=== PATIENT | female | born 1950 | race Caucasian/White ===

== ENCOUNTER 2018-01-15 20:59 | Inpatient (IN) ==
--- NOTE | 2018-01-15 21:22 | Emergency Department Note ---
Disposition Clinical Impression: Facial swelling, Lymphadenopathy, SVC (superior vena cava obstruction), Proteinuria Disposition: Admitted As Inpatient Condition: Fair General Adult HPI - General Chief complaint: ED Shortness of Breath/Dyspnea Stated complaint: FOREIGN/Facial swelling Time Seen by Provider: 01/15/18 21:16 Source: patient Limitations: no limitations - History of Present Illness Pain Scale: 0 - Related Data Home Medications Medication Instructions Recorded Confirmed Calcium Carbonate/Vitamin D3 1 tab PO DAILY 09/08/16 01/16/18 [Calcium 600 + Vit D Tablet] Chlorhexidine Gluconate [Peridex] 15 ml MM BID 09/08/16 01/16/18 Cyanocobalamin (Vitamin B-12) 10,000 mcg PO DAILY 09/08/16 01/16/18 [Vitamin B12] Lisinopril [Zestril] 10 mg PO DAILY 09/08/16 01/16/18 Lovastatin [Mevacor] 20 mg PO HS 09/08/16 01/16/18 Multivitamin [One Daily Essential] 1 tab PO DAILY 09/08/16 01/16/18 Naproxen Sodium/P-Ephed HCl [Aleve 1 tab PO BID PRN 09/08/16 01/16/18 Cold & Sinus Caplet] Paroxetine HCl [Paxil] 20 mg PO DAILY 09/08/16 01/16/18 Turmeric Root Extract [Turmeric] 1,000 mg PO DAILY 09/08/16 01/16/18 Fish Oil/Dha/Epa [Fish Oil 1,200 1 cap PO DAILY 01/16/18 01/16/18 mg Fish Oil] Loratadine [Allergy Relief] 10 mg PO DAILY 01/16/18 01/16/18 Allergies Allergy/AdvReac Type Severity Reaction Status Date / Time No Known Allergies Allergy Verified 01/15/18 21:09 Past Medical History - Past Medical History Medical history: Reports: arthritis, hypertension Surgical history: Reports: orthopedic, other Psychiatric history: Reports: no psych history - Social History Smoking Status: Current every day smoker Alcohol use: Reports: none Drug use: Reports: none Physical Exam - General Limitations: no limitations General appearance: alert, in no apparent distress Course Vital Signs Temperature 98 F 01/15/18 21:04 Pulse Rate 106 01/15/18 21:04 Respiratory Rate 20 01/15/18 21:04 Blood Pressure 147/77 01/15/18 21:04 O2 Sat by Pulse Oximetry 94 01/15/18 21:04 Temperature 97.9 F 01/16/18 11:30 Pulse Rate 86 01/16/18 11:30 Respiratory Rate 18 01/16/18 11:30 Blood Pressure 162/91 01/16/18 11:30 O2 Sat by Pulse Oximetry 94 01/16/18 11:30 Oxygen Delivery Oxygen Delivery Nasal Cannula Medical Decision Making - Lab Data Result diagrams: 01/15/18 21:35 01/16/18 05:55 Lab Results 01/15/18 01/15/18 01/15/18 Range/Units 21:35 21:35 21:35 WBC 8.4 (4.3-11.1) K/mcL RBC 4.63 (3.82-4.97) M/mcL Hgb 14.7 (11.5-15.4) g/dL Hct 42.1 (35.3-44.9) % MCV 90.9 (83.0-100.0) fL MCH 31.7 (28.0-33.3) pg MCHC 34.9 (31.6-35.5) g/dL RDW 14.2 (11.5-14.5) % Plt Count 252 (140-400) K/mcL MPV 9.5 (9.4-12.4) fL Immature Gran % 0.5 (0-4) % Seg Neutrophils % 73.1 % Lymphocytes % 18.0 % Monocytes % 6.6 % Eosinophils % 1.3 % Basophils % 0.5 % Neutrophils # 6.1 (1.6-8.9) K/mcL Lymphocytes # 1.5 (0.6-4.6) K/mcL Monocytes # 0.6 (0.0-1.3) K/mcL Eosinophils # 0.1 (0.0-0.6) K/mcL Basophils # 0.0 (0.0-0.2) K/mcL Sodium 139 (136-145) mEq/L Potassium 3.7 (3.5-5.1) mEq/L Chloride 109 H (98-107) mEq/L Carbon Dioxide 23 (23-29) mEq/L BUN 19 (8-23) mg/dL Creatinine 0.89 (0.60-1.20) mg/dL Est GFR ( Amer) > 60 (> 60) Est GFR (Non-Af Amer) > 60 (> 60) BUN/Creatinine Ratio 21 (6-26) Glucose 162 H (70-105) mg/dL Calculated Osmolality 294 (280-300) Calcium 9.4 (8.6-10.3) mg/dL Troponin I < 0.03 (< 0.04) ng/mL B-Natriuretic Peptide (Less than 100) pg/mL Urine Color (Yellow) Urine Clarity (Clear) Urine pH (5.0-8.0) pH Units Ur Specific [place] (1.010-1.025) Urine Protein (Neg-Trace) mg/dL Urine Glucose (UA) (Normal) mg/dL Urine Ketones (Negative) mg/dL Urine Blood (Negative) Urine Nitrite (Negative) Urine Bilirubin (Negative) Urine Urobilinogen (Normal) mg/dL Ur Leukocyte Esterase (Negative) Urine Microscopic RBC (0-3) per hpf Urine Microscopic WBC (0-3) per hpf Ur Squamous Epith Cells (None-Few) per lpf Calcium Oxalate Crystal Urine Bacteria (None-Few) per hpf Hyaline Casts (None-Few) per lpf 01/15/18 01/15/18 Range/Units 21:35 22:17 WBC (4.3-11.1) K/mcL RBC (3.82-4.97) M/mcL Hgb (11.5-15.4) g/dL Hct (35.3-44.9) % MCV (83.0-100.0) fL MCH (28.0-33.3) pg MCHC (31.6-35.5) g/dL RDW (11.5-14.5) % Plt Count (140-400) K/mcL MPV (9.4-12.4) fL Immature Gran % (0-4) % Seg Neutrophils % % Lymphocytes % % Monocytes % % Eosinophils % % Basophils % % Neutrophils # (1.6-8.9) K/mcL Lymphocytes # (0.6-4.6) K/mcL Monocytes # (0.0-1.3) K/mcL Eosinophils # (0.0-0.6) K/mcL Basophils # (0.0-0.2) K/mcL Sodium (136-145) mEq/L Potassium (3.5-5.1) mEq/L Chloride (98-107) mEq/L Carbon Dioxide (23-29) mEq/L BUN (8-23) mg/dL Creatinine (0.60-1.20) mg/dL Est GFR ( Amer) (> 60) Est GFR (Non-Af Amer) (> 60) BUN/Creatinine Ratio (6-26) Glucose (70-105) mg/dL Calculated Osmolality (280-300) Calcium (8.6-10.3) mg/dL Troponin I (< 0.04) ng/mL B-Natriuretic Peptide 58 (Less than 100) pg/mL Urine Color Yellow (Yellow) Urine Clarity Cloudy A (Clear) Urine pH 6.0 (5.0-8.0) pH Units Ur Specific [place] 1.028 H (1.010-1.025) Urine Protein >=300 H (Neg-Trace) mg/dL Urine Glucose (UA) Normal (Normal) mg/dL Urine Ketones Trace H (Negative) mg/dL Urine Blood Negative (Negative) Urine Nitrite Negative (Negative) Urine Bilirubin Small H (Negative) Urine Urobilinogen Normal (Normal) mg/dL Ur Leukocyte Esterase Negative (Negative) Urine Microscopic RBC 5-15 H (0-3) per hpf Urine Microscopic WBC 5-15 H (0-3) per hpf Ur Squamous Epith Cells Many H (None-Few) per lpf Calcium Oxalate Crystal Present Urine Bacteria None Seen (None-Few) per hpf Hyaline Casts Moderate H (None-Few) per lpf Attestation Statement - Attestation Attestation: I examined this patient and my medical decision-making was reviewed with the Resident Physician. I agree with the documented findings, disposition and treatment plan as described except to the extent set forth below. [id number] time provided Patient presents dyspneic. She recently completed a course of antibiotics and steroids for facial swelling and rash. I favor an underlying component of COPD given her history. She appears in no acute respiratory distress on exam
--- NOTE | 2018-01-15 21:32 | Emergency Department Note ---
Disposition Clinical Impression: Facial swelling, Lymphadenopathy, SVC (superior vena cava obstruction) Proteinuria Qualifiers: Proteinuria type: unspecified Qualified Code(s): R80.9 - Proteinuria, unspecified Disposition: Admitted As Inpatient Condition: Fair Referrals: Clinton Willams MD [Primary Care Provider] - Forms: ED Satisfaction Letter Time of Disposition: 23:10 General Adult HPI - General Chief complaint: ED Shortness of Breath/Dyspnea Stated complaint: FOREIGN/Facial swelling Time Seen by Provider: 01/15/18 21:16 Source: patient Mode of arrival: ambulatory Limitations: no limitations Nursing Notes Reviewed: Yes Vital Signs Reviewed: Yes - History of Present Illness HPI Narrative: 67-year-old female history of hypertension, tobacco abuse presents for evaluation of shortness of breath and facial swelling. Patient states that symptoms started approximately 3 weeks ago. Patient noted that she did get bitten by a tick and removed the tick. States symptom onset was following that. Patient noted swelling of her face with nasal congestion. Patient states she has been on 2 different types of antibiotics which she is not able to recall. Patient notes she has been short of breath. Patient does admit to smoking use. States she has been short of breath "for a long time". Patient denies a nausea vomiting or diaphoresis. Patient denies history of heart attacks. Patient states she does have red spots on her face. Patient does have swollen lower eyelids. States that she has been using Flonase as well as antihistamine to help with her sinus congestion. Patient also had a recent CT of her sinuses. Pain Scale: 0 - Related Data Home Medications Medication Instructions Recorded Confirmed Calcium Carbonate/Vitamin D3 1 tab PO DAILY 09/08/16 09/08/16 [Calcium 600 + Vit D Tablet] Chlorhexidine Gluconate [Peridex] 15 ml MM BID 09/08/16 09/08/16 Cyanocobalamin (Vitamin B-12) 10,000 mcg PO DAILY 09/08/16 09/08/16 [Vitamin B12] Lisinopril [Zestril] 10 mg PO DAILY 09/08/16 09/08/16 Lovastatin [Mevacor] 20 mg PO HS 09/08/16 09/08/16 Multivitamin [One Daily Essential] 1 tab PO DAILY 09/08/16 09/08/16 Naproxen Sodium/P-Ephed HCl [Aleve 1 tab PO BID PRN 09/08/16 09/08/16 Cold & Sinus Caplet] [place]-3S/Dha/Epa/Fish Oil [Fish 1,200 mg PO DAILY 09/08/16 09/08/16 Oil 1,200 mg Softgel] Paroxetine HCl [Paxil] 20 mg PO DAILY 09/08/16 09/08/16 Turmeric Root Extract [Turmeric] 1,000 mg PO DAILY 09/08/16 09/08/16 Allergies Allergy/AdvReac Type Severity Reaction Status Date / Time No Known Allergies Allergy Verified 01/15/18 21:09 All systems ED: reviewed and negative except as stated. Constitutional: Denies: fever Cardiovascular: Reports: chest pain Respiratory: Reports: cough, dyspnea Gastrointestinal: Denies: abdominal pain, nausea, vomiting Past Medical History - Past Medical History Source: patient Medical history: Reports: arthritis, hypertension Surgical history: Reports: orthopedic, other Psychiatric history: Reports: no psych history - Social History Smoking Status: Current every day smoker Alcohol use: Reports: none Drug use: Reports: none Physical Exam - General Limitations: no limitations General appearance: alert, in no apparent distress - Head Head exam: atraumatic, normocephalic, normal inspection - Eye Eye exam: Present: normal appearance, PERRL, EOMI - ENT ENT exam: normal exam, normal oropharynx, mucous membranes moist, other (Lower periorbital swelling. No ecchymosis or erythema. No tenderness over the maxillaries bilaterally. No stridor. No uvular deviation. No trismus. No subungual tenderness.) - Neck Neck exam: Present: normal inspection, trachea midline - Chest Chest inspection: Present: normal inspection - Respiratory Respiratory exam: Present: accessory muscle use, prolonged expiratory phase. Absent: respiratory distress - Cardiovascular Cardiovascular exam: Present: normal rhythm, tachycardia. Absent: systolic murmur - Abdominal Exam Abdominal exam: Present: soft, Non-Tender - Extremities Exam Extremities exam: Present: normal inspection. Absent: pedal edema - Expanded Lower Extremity Exam Neurovascular/Tendon exam: Present: normal capillary refill - Back Exam Back exam: Present: normal inspection - Neurological Exam Neurological exam: Present: alert, oriented X3, CN II-XII intact - Skin Skin exam: Present: warm, dry, intact, normal color Course Course Narrative: Patient seen and examined. Patient appears to be in no acute distress. Patient records reviewed. Patient has not had any recent imaging of her chest. Patient also had not had any recent laboratory work. Patient will get screening cardiopulmonary evaluation. Patient will get a CT Steffanie chest given her tachycardia as well as facial swelling. Disposition pending. - Reevaluation(s) Reevaluation #1: Patient resting comfortably. Time: 23:08 Vital Signs Temperature 98 F 01/15/18 21:04 Pulse Rate 106 01/15/18 21:04 Respiratory Rate 20 01/15/18 21:04 Blood Pressure 147/77 01/15/18 21:04 O2 Sat by Pulse Oximetry 94 01/15/18 21:04 Temperature 98 F 01/15/18 21:04 Pulse Rate 98 01/15/18 22:00 Respiratory Rate 20 01/15/18 22:00 Blood Pressure 127/70 01/15/18 22:00 O2 Sat by Pulse Oximetry 93 01/15/18 22:00 Oxygen Delivery Oxygen Delivery Nasal Cannula Medical Decision Making - [facility] Narrative Medical decision making narrative: Patient presents with shortness of breath as well as facial swelling. Patient had basic labs which were clinically unremarkable. Patient has a history of COPD and smoking. Patient had evidence of protein in her urine. Initial concerns for nephrotic syndrome. Patient did get advanced imaging of the chest which showed concerns first. Vena cava syndrome. Patient had some lymphadenopathy consistent with metastatic disease or lymphoma. Patient would likely need all clot evaluation regarding these findings. Patient will also need evaluation regarding her illness please see compression causing her facial swelling. Patient will be admitted to hospital service for further investigation. - Lab Data Lab results reviewed: Yes I reviewed the patient's lab results. Result diagrams: 01/15/18 21:35 01/15/18 21:35 Lab Results 01/15/18 01/15/18 01/15/18 Range/Units 21:35 21:35 21:35 WBC 8.4 (4.3-11.1) K/mcL RBC 4.63 (3.82-4.97) M/mcL Hgb 14.7 (11.5-15.4) g/dL Hct 42.1 (35.3-44.9) % MCV 90.9 (83.0-100.0) fL MCH 31.7 (28.0-33.3) pg MCHC 34.9 (31.6-35.5) g/dL RDW 14.2 (11.5-14.5) % Plt Count 252 (140-400) K/mcL MPV 9.5 (9.4-12.4) fL Immature Gran % 0.5 (0-4) % Seg Neutrophils % 73.1 % Lymphocytes % 18.0 % Monocytes % 6.6 % Eosinophils % 1.3 % Basophils % 0.5 % Neutrophils # 6.1 (1.6-8.9) K/mcL Lymphocytes # 1.5 (0.6-4.6) K/mcL Monocytes # 0.6 (0.0-1.3) K/mcL Eosinophils # 0.1 (0.0-0.6) K/mcL Basophils # 0.0 (0.0-0.2) K/mcL Sodium 139 (136-145) mEq/L Potassium 3.7 (3.5-5.1) mEq/L Chloride 109 H (98-107) mEq/L Carbon Dioxide 23 (23-29) mEq/L BUN 19 (8-23) mg/dL Creatinine 0.89 (0.60-1.20) mg/dL Est GFR ( Amer) > 60 (> 60) Est GFR (Non-Af Amer) > 60 (> 60) BUN/Creatinine Ratio 21 (6-26) Glucose 162 H (70-105) mg/dL Calculated Osmolality 294 (280-300) Calcium 9.4 (8.6-10.3) mg/dL Troponin I < 0.03 (< 0.04) ng/mL B-Natriuretic Peptide (Less than 100) pg/mL Urine Color (Yellow) Urine Clarity (Clear) Urine pH (5.0-8.0) pH Units Ur Specific [place] (1.010-1.025) Urine Protein (Neg-Trace) mg/dL Urine Glucose (UA) (Normal) mg/dL Urine Ketones (Negative) mg/dL Urine Blood (Negative) Urine Nitrite (Negative) Urine Bilirubin (Negative) Urine Urobilinogen (Normal) mg/dL Ur Leukocyte Esterase (Negative) Urine Microscopic RBC (0-3) per hpf Urine Microscopic WBC (0-3) per hpf Ur Squamous Epith Cells (None-Few) per lpf Calcium Oxalate Crystal Urine Bacteria (None-Few) per hpf Hyaline Casts (None-Few) per lpf 01/15/18 01/15/18 Range/Units 21:35 22:17 WBC (4.3-11.1) K/mcL RBC (3.82-4.97) M/mcL Hgb (11.5-15.4) g/dL Hct (35.3-44.9) % MCV (83.0-100.0) fL MCH (28.0-33.3) pg MCHC (31.6-35.5) g/dL RDW (11.5-14.5) % Plt Count (140-400) K/mcL MPV (9.4-12.4) fL Immature Gran % (0-4) % Seg Neutrophils % % Lymphocytes % % Monocytes % % Eosinophils % % Basophils % % Neutrophils # (1.6-8.9) K/mcL Lymphocytes # (0.6-4.6) K/mcL Monocytes # (0.0-1.3) K/mcL Eosinophils # (0.0-0.6) K/mcL Basophils # (0.0-0.2) K/mcL Sodium (136-145) mEq/L Potassium (3.5-5.1) mEq/L Chloride (98-107) mEq/L Carbon Dioxide (23-29) mEq/L BUN (8-23) mg/dL Creatinine (0.60-1.20) mg/dL Est GFR ( Amer) (> 60) Est GFR (Non-Af Amer) (> 60) BUN/Creatinine Ratio (6-26) Glucose (70-105) mg/dL Calculated Osmolality (280-300) Calcium (8.6-10.3) mg/dL Troponin I (< 0.04) ng/mL B-Natriuretic Peptide 58 (Less than 100) pg/mL Urine Color Yellow (Yellow) Urine Clarity Cloudy A (Clear) Urine pH 6.0 (5.0-8.0) pH Units Ur Specific [place] 1.028 H (1.010-1.025) Urine Protein >=300 H (Neg-Trace) mg/dL Urine Glucose (UA) Normal (Normal) mg/dL Urine Ketones Trace H (Negative) mg/dL Urine Blood Negative (Negative) Urine Nitrite Negative (Negative) Urine Bilirubin Small H (Negative) Urine Urobilinogen Normal (Normal) mg/dL Ur Leukocyte Esterase Negative (Negative) Urine Microscopic RBC 5-15 H (0-3) per hpf Urine Microscopic WBC 5-15 H (0-3) per hpf Ur Squamous Epith Cells Many H (None-Few) per lpf Calcium Oxalate Crystal Present Urine Bacteria None Seen (None-Few) per hpf Hyaline Casts Moderate H (None-Few) per lpf - Radiology Data Radiology results reviewed: Yes I reviewed the patient's radiology results. Chest X-Ray 01/15/18 21:09 IMPRESSION: Possible trace right pleural effusion with associated streaky right basilar opacities that could represent atelectasis or infiltrate. Slight increased fullness in the right hilar/suprahilar region is nonspecific, but may represent a prominent central pulmonary vasculature from pulmonary edema versus nonspecific lymph nodes. D/ / 01/15/2018 21:45:47 Julian Hart MD / arlene Interpreting Provider: Julian Hart MD Chest CTA 01/15/18 21:33 IMPRESSION: 1. No pulmonary embolism. 2. Bulky mediastinal and right hilar lymphadenopathy. Pattern may represent lymphoma or metastatic disease. Bronchogenic carcinoma cannot be excluded. Close clinical follow-up is recommended. 3. Lymphadenopathy contributes to extrinsic mass effect upon the SVC, right upper lobar pulmonary artery and to a lesser degree the right upper lobar bronchus. 4. Spiculated nodule also noted in the right upper lobe of concern for malignancy. 5. Partial visualization of right supraclavicular lymph nodes which are also enlarged. D/ / Jim Hearn MD / Jim Hearn MD Interpreting Provider: Jim Hearn MD - EKG Data EKG #1 EKG attestation: Yes I reviewed and interpreted this EKG. EKG shows normal: sinus rhythm Rate: tachycardia Rhythm: NSR [place]/QRS: normal T wave inversions noted in: v1, v2 Interpretation: no acute changes, nonspecific ST-T wave changes S.B.A.R. - S.B.A.R. Situation: Demographics Background: Presenting Complaint Assessment: Vital Signs, Course and respsone to treatment, Patient/Family Expectation Recommendation: Barrier(s) to disposition, Recommendation based on pending studies, treatments, or consults Theresa Report Given to: Dr. Suman Cardenas Repor Time: 23:31
[2018-01-15] MEDS ORDERED: Isovue-370 500 ML INFUS..BTL IV ONE (21:33)
[2018-01-15] MEDS ORDERED: 0.9 % Sodium Chloride 1,000 ML IVC ONE (21:36)
[2018-01-15 21:46] LABS: Basophils % 0.5 %; Eosinophils # 0.1 K/mcL (0.0-0.6); Eosinophils % 1.3 %; Hematocrit 42.1 % (35.3-44.9); Hemoglobin 14.7 g/dL (11.5-15.4); Immature Granulocytes % 0.5 % (0-4); Lymphocytes # 1.5 K/mcL (0.6-4.6); Mean Corpuscular HGB Conc 34.9 g/dL (31.6-35.5); Mean Corpuscular Hemoglobin 31.7 pg (28.0-33.3); Mean Corpuscular Volume 90.9 fL (83.0-100.0); Mean Platelet Volume 9.5 fL (9.4-12.4); Monocytes # 0.6 K/mcL (0.0-1.3); Monocytes % 6.6 %; Neutrophils # 6.1 K/mcL (1.6-8.9); Platelet Count 252 K/mcL (140-400); Red Blood Count 4.63 M/mcL (3.82-4.97); Red Cell Distribution Width 14.2 % (11.5-14.5); Segmented Neutrophils % 73.1 %
[2018-01-15 22:04] LABS: BUN/Creatinine Ratio 21 (6-26); Blood Urea Nitrogen 19 mg/dL (8-23); Calcium 9.4 mg/dL (8.6-10.3); Carbon Dioxide 23 mEq/L (23-29); Chloride 109 mEq/L (98-107); Glucose 162 mg/dL (70-105); Osmolality,Calculated 294 (280-300); Potassium 3.7 mEq/L (3.5-5.1); Sodium 139 mEq/L (136-145); eGFR For African Americans > 60 (> 60); eGFR For Non-African Americans > 60 (> 60)
[2018-01-15 22:23] LABS: Bilirubin,Urine Small (Negative); Blood,Urine Negative (Negative); Clarity,Urine Cloudy (Clear); Color,Urine Yellow (Yellow); Glucose,Urine (UA) Normal (Normal); Ketones,Urine Trace mg/dL (Negative); Leukocyte Esterase,Urine Negative (Negative); Nitrite,Urine Negative (Negative); Protein,Urine >=300 mg/dL (Neg-Trace); Specific Gravity,Urine 1.028 (1.010-1.025); Urobilinogen,Urine Normal (Normal)
[2018-01-15 22:25] LABS: Bacteria,Urine None Seen per hpf (None-Few); Hyaline Casts,Urine Moderate per lpf (None-Few); Squamous Epithelial Cell,Urine Many per lpf (None-Few)
[2018-01-15 22:43] LABS: Calcium Oxalate Crystals,Urine Present
--- NOTE | 2018-01-16 00:25 | Internal Med History&Physical ---
<Zulema Elliott - Last Filed: 01/16/18 01:54> Date of Encounter: 01/16/18 Time of Encounter: 00:21 Internal Medicine - H&P: HPI Chief complaint: SOB and facial swelling Admitted From: Home Plans for Post Hospital Care: Home History of present illness: Ms. Ramires is a 67 year old female with a pmh of HTN, HLP, depression, and a smoker who presented to the ED with bilateral facial swelling and shortness of breath. Three weeks ago she began having sinus congestion and facial swelling that she had 2 rounds of antibiotics which did not resolve. CT of sinuses showed minimal sinus thickening. She continued to have facial swelling that worsened and extended into her right arm and an itchy red macular rash on the left side of her face that appeared 1 week ago. SOB with associated orthopnea, hoarness, cough, and yellow sputum. She is not on home oxygen. She smokes 2ppd and has smoked since she was 15 y/o. Admits to also having dizziness, changes in vision, and headaches. Denies fever, weight loss, night sweats, hemoptysis, abd pain, melena, hematochezia,and dysphagia. In the ED, CXR showed suprahilar edema and CT showed bulky mediastinal and right hilar lymphadenopathy, with mass effect of the SVC and a spiculated nodule in the right upper lobe with concerns for malignancy. She was admitted to the hospital for work-up for spiculated nodule and SVC syndrome. Past Med Surg Social Fam HX - Past Medical History Source: patient, old records reviewed Medical history: arthritis, hyperlipidemia, hypertension Psychiatric history: depression - Past Surgical History Surgical History: orthopedic, other (shoulder x2 ) - Social History Smoking Status: Current every day smoker (since she was 15 y/o) Packs per day: 2 Alcohol use: none Drug use: none Internal Medicine - H&P: Meds Calcium Carbonate/Vitamin D3 [Calcium 600 + Vit D Tablet] 1 tab PO DAILY [History] Chlorhexidine Gluconate [Peridex] 15 ml MM BID 09/08/16 [History] Cyanocobalamin (Vitamin B-12) [Vitamin B12] 10,000 mcg PO DAILY 09/08/16 [ History] Lisinopril [Zestril] 10 mg PO DAILY 09/08/16 [History] Lovastatin [Mevacor] 20 mg PO HS 09/08/16 [History] Multivitamin [One Daily Essential] 1 tab PO DAILY 09/08/16 [History] Naproxen Sodium/P-Ephed HCl [Aleve Cold & Sinus Caplet] 1 tab PO BID PRN [History] [place]-3S/Dha/Epa/Fish Oil [Fish Oil 1,200 mg Softgel] 1,200 mg PO DAILY [History] Paroxetine HCl [Paxil] 20 mg PO DAILY 09/08/16 [History] Turmeric Root Extract [Turmeric] 1,000 mg PO DAILY 09/08/16 [History] 3 Allergy/AdvReac Type Severity Reaction Status Date / Time No Known Allergies Allergy Verified 01/15/18 21:09 All Systems PM: A 10-system review of systems was performed and is negative for pertinent findings except as documented above in the HPI. - Constitutional Vitals: Temp Pulse Resp BP Pulse Ox 98 F 89 18 140/77 95 01/15/18 21:04 01/15/18 23:30 01/15/18 23:30 01/15/18 23:30 01/15/18 23:30 Exam: Constitutional: Alert, in no acute distress, well nourished Head: bilateral facial swelling with macular blanchable rash on left cheek Neck: bilateral painful lymphadenopathy Heart: Normal, regular rate and rhythm, no murmurs Lungs: Clear to auscultation, no wheezes, rales, or rhonchi Abdomen: Soft, nondistended, nontender, no guarding or rigidity. Extremities: right upper extremity with +1 pitting edema proximal to forearm, suprclavicular swelling and lyphadenopathy, lower extremities without edema, No clubbing, cyanosis, or edema, radial pulse +2/4, capillary refill <2sec. Skin: Skin warm and dry, no jaundice Neurologic: Cranial nerves II through XII grossly intact, no focal deficits, strength within normal limits in all extremities Psych: Cooperative with exam, good eye contact, cognitive function intact, judgment good insight good, speech clear, thought process logical, and goal directed Internal Med - H&P Results - Labs CBC & Chem 7: 01/15/18 21:35 01/15/18 21:35 - Assessment and plan (1) SVC syndrome Current Visit: Yes Status: Acute Assessment and plan: Patient complaining of bilateral facial swelling, rate arm swelling, sinus congestion, shortness of breath, headache, dizziness, changes in vision, hoarseness, or orthopnea. CT scan showed specific nodule in the right upper lung and lymphadenopathy causing a mass effect on the superior vena cava. Plan: - oncology consult in the AM - oxygen support with nasal cannula. - Echo ordered - continuous pulse ox (2) Proteinuria Current Visit: Yes Status: Acute Assessment and plan: Creatinine function normal. Lipid panel and CMP in the AM for albumin level. Qualifiers: Proteinuria type: unspecified Qualified Code(s): R80.9 - Proteinuria, unspecified (3) Dermatitis Current Visit: Yes Status: Acute Assessment and plan: Macular blanchable rash on left cheek with unknown etiology. Mild itching. No allergies to any recent medications. Will continue to observe. - Time Spent With Patient Total time spent is greater than 50% in coordination of care (as documented) at patient's floor/unit and/or counseling patient: <SumanKindrafabiancammie - Last Filed: 01/16/18 05:46> Date of Encounter: 01/16/18 Internal Medicine - H&P: HPI History of present illness: Ms. Ramires is a 67 year old female All Systems PM: A 10-system review of systems was performed and is negative for pertinent findings except as documented above in the HPI. - Constitutional Vitals: Temp Pulse Resp BP Pulse Ox 98.2 F 90 16 176/79 93 01/16/18 01:20 01/16/18 01:20 01/16/18 01:20 01/16/18 01:20 01/16/18 01:20 Internal Med - H&P Results - Labs CBC & Chem 7: 01/15/18 21:35 01/15/18 21:35 - Attending Attestation I have seen and examined this patient independently. I have discussed with resident physician Dr. Elliott regarding the management plan. Agree with the documentation - Assessment and plan (1) Proteinuria Current Visit: Yes Status: Acute Qualifiers: Proteinuria type: unspecified Qualified Code(s): R80.9 - Proteinuria, unspecified (2) SVC syndrome Current Visit: Yes Status: Acute (3) Dermatitis Current Visit: Yes Status: Acute - Time Spent With Patient Total time spent is greater than 50% in coordination of care (as documented) at patient's floor/unit and/or counseling patient:
[2018-01-16] MEDS ORDERED: Acetaminophen 325 MG TABLET PO PRN (00:57)
[2018-01-16] MEDS ORDERED: Naloxone 0.4 MG/ML INJ IVP PRN (00:57)
[2018-01-16] MEDS: *HR* Heparin 5,000 UNIT/ML VIAL SQ SCH ×2 (05:49→17:58)
[2018-01-16] MEDS: Ipratropium/Albuterol Neb 3 ML IH PRN ×2 (06:15→18:01)
[2018-01-16 06:31] LABS: Alanine Aminotransferase 15 Units/L (7-52); Albumin 3.8 g/dL (3.5-5.7); Albumin/Globulin Ratio 1.6 (1.1-2.2); Alkaline Phosphatase 59 Units/L (34-104); Aspartate Amino Transferase 13 Units/L (13-39); BUN/Creatinine Ratio 27 (6-26); Bilirubin,Total 0.3 mg/dL (0.3-1.0); Blood Urea Nitrogen 19 mg/dL (8-23); Calcium 8.9 mg/dL (8.6-10.3); Carbon Dioxide 21 mEq/L (23-29); Chloride 113 mEq/L (98-107); Chol/HDL Ratio 3.1 (0-4.9); Cholesterol 148 mg/dL (< 200); Globulin 2.4 g/dL (2.4-3.5); Glucose 87 mg/dL (70-105); HDL Cholesterol 47 mg/dL (40-59); LDL Cholesterol,Calculated 86 mg/dL (0-99); Magnesium 2.1 mg/dL (1.6-2.6); Osmolality,Calculated 294 (280-300); Sodium 141 mEq/L (136-145); Total Protein 6.2 g/dL (6.4-8.9); Triglycerides 74 mg/dL (< 150); eGFR For African Americans > 60 (> 60); eGFR For Non-African Americans > 60 (> 60)
[2018-01-16] MEDS ORDERED: Dexamethasone 4 MG/ML VIAL IVP ONE (07:44)
[2018-01-16] MEDS: Dexamethasone 4 MG/ML VIAL IVP SCH ×3 (08:14→21:12)
[2018-01-16 09:33] LABS: Prothrombin Time 10.6 Seconds (9.4-12.1)
[2018-01-16 09:36] LABS: Activated Partial Thrombo Time 46.3 Seconds (26.0-36.0)
--- NOTE | 2018-01-16 09:41 | Event Note ---
<Bright Benavidez - Last Filed: 01/16/18 09:39> Date of Encounter: 01/16/18 Time of Encounter: 09:39 Patient seen and examined at bedside. Patient states that she feels okay today. She reports that she feels short of breath and has mild cough. Denies hemoptysis. Vital signs stable Lung sounds diminished but no rales, rhonchi, wheezes bilaterally Heart regular rate and rhythm Facial plethora noted A/P: Mediastinal mass: Concern for malignancy, possibly small cell lung cancer, lymphoma. Discussed with interventional radiology and pulmonology, as well as oncology. At this point we will ask pulmonology to proceed with bronchoscopy as this is the safest initial option, if unable to obtain tissue sample through bronchoscopy we will attempt transthoracic needle biopsy with interventional radiology. Oncology will evaluate the patient. Continue dexamethasone <Ortega Fernandez - Last Filed: 01/16/18 16:27> Date of Encounter: 01/16/18 Pt was admitted earlier this AM for mediastinal mass. She is planned for biopsy today. Further plan per pulm and onc.
--- NOTE | 2018-01-16 11:07 | Pulmonology Consult Note ---
<Puneet Farooq M - Last Filed: 01/16/18 11:54> Date of Encounter: 01/16/18 Medications and Allergies Calcium Carbonate/Vitamin D3 [Calcium 600 + Vit D Tablet] 1 tab PO DAILY [History] Chlorhexidine Gluconate [Peridex] 15 ml MM BID 09/08/16 [History] Cyanocobalamin (Vitamin B-12) [Vitamin B12] 10,000 mcg PO DAILY 09/08/16 [ History] Lisinopril [Zestril] 10 mg PO DAILY 09/08/16 [History] Lovastatin [Mevacor] 20 mg PO HS 09/08/16 [History] Multivitamin [One Daily Essential] 1 tab PO DAILY 09/08/16 [History] Naproxen Sodium/P-Ephed HCl [Aleve Cold & Sinus Caplet] 1 tab PO BID PRN [History] Paroxetine HCl [Paxil] 20 mg PO DAILY 09/08/16 [History] Turmeric Root Extract [Turmeric] 1,000 mg PO DAILY 09/08/16 [History] Fish Oil/Dha/Epa [Fish Oil 1,200 mg Fish Oil] 1 cap PO DAILY 01/16/18 [History] Loratadine [Allergy Relief] 10 mg PO DAILY 01/16/18 [History] 3 Allergy/AdvReac Type Severity Reaction Status Date / Time No Known Allergies Allergy Verified 01/15/18 21:09 All Systems: The remainder of the systems were reviewed and are negative Physical Examination Vital Signs: Vital Signs, Last 4 Hours Temp Pulse Resp BP Pulse Ox 01/16/18 11:30 97.9 F 86 18 162/91 94 01/16/18 08:17 96 Results - Laboratory Findings CBC and BMP: 01/15/18 21:35 01/16/18 05:55 PT/INR, D-dimer PT 10.6 Seconds (9.4-12.1) 01/16/18 08:57 Abnormal lab findings: Abnormal lab results APTT 46.3 Seconds (26.0-36.0) H 01/16/18 08:57 Chloride 113 mEq/L (98-107) H 01/16/18 05:55 Carbon Dioxide 21 mEq/L (23-29) L 01/16/18 05:55 BUN/Creatinine Ratio 27 (6-26) H 01/16/18 05:55 Serum Total Protein 6.2 g/dL (6.4-8.9) L 01/16/18 05:55 Urine Clarity Cloudy (Clear) A 01/15/18 22:17 Ur Specific Anabel 1.028 (1.010-1.025) H 01/15/18 22:17 Urine Protein >=300 mg/dL (Neg-Trace) H 01/15/18 22:17 Urine Ketones Trace mg/dL (Negative) H 01/15/18 22:17 Urine Bilirubin Small (Negative) H 01/15/18 22:17 Urine Microscopic RBC 5-15 per hpf (0-3) H 01/15/18 22:17 Urine Microscopic WBC 5-15 per hpf (0-3) H 01/15/18 22:17 Ur Squamous Epith Cells Many per lpf (None-Few) H 01/15/18 22:17 Hyaline Casts Moderate per lpf (None-Few) H 01/15/18 22:17 - Clinical Findings Intake & Output: Intake & Output 01/15/18 01/16/18 01/16/18 23:59 07:59 15:59 Intake Total 1360 / 1360 Balance 1360 / 1360 Weight 54.1 kg Consult Discharge Plan - Plan Referrals: Clinton Willams MD [Primary Care Provider] - - Attending Attestation I examined this patient and my medical decision-making was reviewed with the Resident Physician. I agree with the documented findings, disposition and treatment plan as described except to the extent set forth below. Patient seen and examined. Labs, radiology, chart personally reviewed. Agree with resident's history and physical, assessment, plan with following comments: NURSE PRIVATE DUTY: Patient follows commands, Pulmonary: Acceptable oxygenation and ventilation. 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 Case discussed with oncologist. I have explained to the patient about bronchoscopy with all the risks, alternative, and benefits of the procedure and she agreed to have it done. I have also discussed with the pathologist to be on site for the procedure. Since patient eaten this morning we will await and plan to do it this afternoon. Patient also with evidence suggestive of COPD and bronchodilators is appropriate treatment. Cardiovascular: stable Thank you for the consultation. <Alva Ochoa - Last Filed: 01/16/18 17:20> Date of Encounter: 01/16/18 Time of Encounter: 10:45 Assessment and Plan (1) Mediastinal mass Current Visit: Yes Status: Acute Concern for malignancy, possibly small cell lung cancer or lymphoma 01/15/18 CXR: slightly increased fullness of right supra-/hilar region possibly representing prominent pulmonary vasculature d/t pulmonary edema vs lymph nodes ; trace right pleural effusion with right basilar opacities atelectasis vs infiltrate 01/15/18 CTA chest: No pulmonary embolism. Mediastinal and right hilar lymphadenopathy may represent lymphoma or metastatic disease. Bronchogenic carcinoma cannot be excluded. Lymphadenopathy causing mass effect on SVC, RUL pulmonary artery. Spiculated nodule in the RUL concerning for malignancy. Partially visualized right supraclavicular lymph nodes enlarged. Risks and benefits of bronchoscopy explained to patient who verbalized understanding, obtained informed consent Plan: Anticipating brochoscopy today with attempt to collect tissue sample Primary team consulted IR, who may attempt transthoracic needle biopsy if unable to collect sample by bronchoscopy Oncology following (2) SVC syndrome Current Visit: Yes Status: Acute 01/15/18 CTA chest: findings as above Plan: Continue supplemental oxygen Continue bronchodilators History of Present Illness Consult date: 01/16/18 Reason for consult: dyspnea History of present illness: Seen and examined this morning at bedside. Pulmonology consulted regarding possible bronchoscopy for biopsy of mediastinal mass. Ms. Ramires is a 67 year-old female who presented to the ED for difficulty breathing and facial swelling. Admitted for work-up of spiculated nodule and SVC syndrome. Per pt, PMH includes HLD, HTN, and anxiety; states she's never been diagnosed with COPD and doesn't use oxygen at home. Pt states she woke up in the morning 4 weeks ago with significant swelling around her eyes; she was seen at urgent care and PCP office and received antibiotics and steroids at both places for what pt thought was a sinus infection. She reports the swelling progressed down her neck and into her right arm 1 week ago. Admits orthopnea and TRAN, both of which are new to her. She also admits intermittent chills, nausea, and discomfort with swallowing. She denies pain, fevers, vomiting, decreased appetite. History of tobacco use, reports she started smoking at 15 years-old. She is a current every-day smoker of 2 ppd. Past Med Surg Social Fam HX - Past Medical History Medical history: arthritis, hyperlipidemia, hypertension Psychiatric history: depression - Past Surgical History Surgical History: orthopedic, other (shoulder x2 ) - Social History Smoking Status: Current every day smoker (since she was 15 y/o) Packs per day: 2 Smokeless Tobacco Status: No Alcohol use: none Drug use: none All Systems: The remainder of the systems were reviewed and are negative - Constitutional Constitutional: as per HPI, chills, no anorexia, no fever(s) - Cardiovascular Cardiovascular: as per HPI, dyspnea on exertion, edema (RUE), orthopnea, no leg edema - Respiratory Respiratory: as per HPI, cough, dyspnea, dyspnea on exertion, snoring (pt states this is new), no wheezing - Gastrointestinal Gastrointestinal: as per HPI, nausea, no abdominal pain, no diarrhea, no vomiting - Neurological Neurological: as per HPI, tingling (bilateral hands worse on right d/t shoulder surgery x 2) - Allergic/Immunologic Allergic/Immunologic: other (chronic sinus infections), no wheezing Physical Examination Vital Signs: Vital Signs, Last 4 Hours Temp Pulse Resp BP Pulse Ox 01/16/18 08:17 96 01/16/18 07:21 98.7 F 89 16 172/85 94 General appearance: no acute distress, alert Eyes: other (PERRL) ENT: oropharynx moist Neck: other (soft tissue swelling, mild tenderness to palpation) Effort: normal Auscultation: bilateral: clear, diminished breath sounds Cardiovascular: regular rate and rhythm Integumentary: rash (left cheek) Extremities: no cyanosis, no clubbing, pink and warm, edema, other (Radial pulses: Rt 3/5 Lt 4/5) normal mental status, non-focal exam, pupils equal and round, motor strength normal and symmetric mood appropriate, affect normal Results - Laboratory Findings CBC and BMP: 01/15/18 21:35 01/16/18 05:55 PT/INR, D-dimer PT 10.6 Seconds (9.4-12.1) 01/16/18 08:57 Abnormal lab findings: Abnormal lab results APTT 46.3 Seconds (26.0-36.0) H 01/16/18 08:57 Chloride 113 mEq/L (98-107) H 01/16/18 05:55 Carbon Dioxide 21 mEq/L (23-29) L 01/16/18 05:55 BUN/Creatinine Ratio 27 (6-26) H 01/16/18 05:55 Serum Total Protein 6.2 g/dL (6.4-8.9) L 01/16/18 05:55 Urine Clarity Cloudy (Clear) A 01/15/18 22:17 Ur Specific Anabel 1.028 (1.010-1.025) H 01/15/18 22:17 Urine Protein >=300 mg/dL (Neg-Trace) H 01/15/18 22:17 Urine Ketones Trace mg/dL (Negative) H 01/15/18 22:17 Urine Bilirubin Small (Negative) H 01/15/18 22:17 Urine Microscopic RBC 5-15 per hpf (0-3) H 01/15/18 22:17 Urine Microscopic WBC 5-15 per hpf (0-3) H 01/15/18 22:17 Ur Squamous Epith Cells Many per lpf (None-Few) H 01/15/18 22:17 Hyaline Casts Moderate per lpf (None-Few) H 01/15/18 22:17 - Clinical Findings Intake & Output: Intake & Output 01/15/18 01/16/18 01/16/18 23:59 07:59 15:59 Intake Total 1360 / 1360 Balance 1360 / 1360 Weight 54.1 kg
--- NOTE | 2018-01-16 12:54 | Oncology Inp Consult Note ---
<NabilaRellArsenio S - Last Filed: 01/16/18 21:40> Date of Encounter: 01/16/18 - Data of Consult Requesting Physician: Ortega Fernandez DO Primary Care Provider: Clinton Willams MD - Consult Narrative History of present illness: Ms. Ramires is a 67 year old female Medications and Allergies Calcium Carbonate/Vitamin D3 [Calcium 600 + Vit D Tablet] 1 tab PO DAILY [History] Chlorhexidine Gluconate [Peridex] 15 ml MM BID 09/08/16 [History] Cyanocobalamin (Vitamin B-12) [Vitamin B12] 10,000 mcg PO DAILY 09/08/16 [ History] Lisinopril [Zestril] 10 mg PO DAILY 09/08/16 [History] Lovastatin [Mevacor] 20 mg PO HS 09/08/16 [History] Multivitamin [One Daily Essential] 1 tab PO DAILY 09/08/16 [History] Naproxen Sodium/P-Ephed HCl [Aleve Cold & Sinus Caplet] 1 tab PO BID PRN [History] Paroxetine HCl [Paxil] 20 mg PO DAILY 09/08/16 [History] Turmeric Root Extract [Turmeric] 1,000 mg PO DAILY 09/08/16 [History] Fish Oil/Dha/Epa [Fish Oil 1,200 mg Fish Oil] 1 cap PO DAILY 01/16/18 [History] Loratadine [Allergy Relief] 10 mg PO DAILY 01/16/18 [History] 3 Allergy/AdvReac Type Severity Reaction Status Date / Time No Known Allergies Allergy Verified 01/15/18 21:09 Oncology - Exam - Constitutional Vitals: Temp Pulse Resp BP Pulse Ox 98.1 F 101 16 156/74 94 01/16/18 19:24 01/16/18 19:24 01/16/18 19:24 01/16/18 19:24 01/16/18 19:53 Oncology - Results Labs: 3 01/16/18 01/16/18 08:57 05:55 PT 10.6 INR 1.0 APTT 46.3 H Sodium 141 Potassium 4.0 Chloride 113 H Carbon Dioxide 21 L BUN 19 Creatinine 0.71 Est GFR ( Amer) > 60 Est GFR (Non-Af Amer) > 60 BUN/Creatinine Ratio 27 H Glucose 87 Calculated Osmolality 294 Calcium 8.9 Magnesium 2.1 Total Bilirubin 0.3 AST 13 ALT 15 Alkaline Phosphatase 59 Serum Total Protein 6.2 L Albumin 3.8 Globulin 2.4 Albumin/Globulin Ratio 1.6 Triglycerides 74 Cholesterol 148 LDL Cholesterol, Calc 86 VLDL Cholesterol, Calc 15 HDL Cholesterol 47 Cholesterol/HDL Ratio 3.1 Consult Discharge Plan - Plan Referrals: Clinton Willams MD [Primary Care Provider] - - Attending Attestation I have seen and examined the patient and agree with Ms. Neely's assessment. She presents with a 4 weeks history of facial fullness and swelling. She has increasing SOB. CT chst imaging which I personally reviewed revealed extensive mediastinal disease, a right lung lesion and supraclavicular adenopathy. Clinically, this is concerning for small cell carcinoma, lymphoma or possibly NSCLC. Other possibilities exist. Recommended biopsy either by CT guidance or bronchoscopy; pulmonary felt confident about bronch. Per preliminary report, bronch was incomplete. I recommend US/CT guided biopsy of the right supraclavicular node or the superolateral anterior mediastinal mass. Will expedite pathology. Continue decadron and will await pathology for further direction. Therapy will be indicated urgently pending path review. If there is delay, SVC stent may need to be contemplated, but should hopefully not be necessary. Recommend MRI brain for staging. CT chest with good liver and adrenal imaging without mass. Complete staging with PET/CT as an outpatient once stable. <Kim Neely L - Last Filed: 01/17/18 07:41> Date of Encounter: 01/16/18 Time of Encounter: 11:00 Assessment and Plan (1) Lymphadenopathy Status: Acute Assessment and plan: CTA chest revealed bulky mediastinal and right hilar lymphadenopathy, Lymphadenopathy contributes to extrinsic mass effect upon the SVC, right upper lobar pulmonary artery and to a lesser degree the right upper lobar bronchus, Spiculated nodule also noted in the right upper lobe of concern for malignancy and Partial visualization of right supraclavicular lymph nodes which are also enlarged. Imagining concerning for Small Cell Lung Cancer, Lymphoma, among others. Planned for bronchoscopy today. Will expedite pathology process and plan to begin inpatient chemotherapy and or radiation therapy dependent upon final pathology. MRI brain wo/w for staging, she reports left eye vision changes/blurriness, headache and dizziness, symptoms likely secondary to SVC syndrome, however, need to rule out other potential causes. Will plan for PET/CT as outpatient. Discussed plan with patient/patients family at bedside today. Patient is understandably tearful over recent findings. Verbal support given. We are hopeful to expedite process to aid in her symptoms drew. (2) SVC (superior vena cava obstruction) Status: Acute Assessment and plan: Secondary to extrinsic compression. Periorbital edema, facial/neck edema, RUE edema. Patient is stable and without display of stridor, no dysphagia. Continue decadron. We are hopeful to expedite biopsy/pathology process to determine appropriate treatment course. Plan to initiate inpatient chemotherapy and/or radiation therapy, dependent upon final pathology report, to aid in relief of symptoms. If process cannot be expedited by end of week, may consider SVC stent. - Data of Consult Patient: new to practice Consult date: 01/16/18 Requesting Physician: Ortega Fernandez DO Primary Care Provider: Clinton Willams MD - Consult Narrative Reason for consult: bulky mediastinal and right hilar lymphadenopathy, SVC syndrome History of present illness: Ms. Ramires is a 67 year old female with past medical history significant for HTN , Hyperlipidemia, depression, and tobacco abuse, who presented to the ED with report of bilateral facial swelling and shortness of breath. Ms Ramires reports that about 4 weeks ago she woke up with bilateral periorbital edema, facial swelling and sinus pain, she has been treated over the past few weeks with two rounds of antibiotics which has not improved her symptoms. Over this period of time she also reports increased SOB above baseline, a worsening cough, orthopnea , headache, dizziness upon standing and left eye visual changes/blurriness. She denies hemoptysis, appetite changes, unintended weight loss, dysphagia, nausea, vomiting, diarrhea, abdominal pain, numbness, tingling or difficulty with ambulation. In the ED, CXR showed suprahilar edema. CTA chest revealed bulky mediastinal and right hilar lymphadenopathy, Lymphadenopathy contributes to extrinsic mass effect upon the SVC, right upper lobar pulmonary artery and to a lesser degree the right upper lobar bronchus, Spiculated nodule also noted in the right upper lobe of concern for malignancy and Partial visualization of right supraclavicular lymph nodes which are also enlarged. Ms. Ramires currently smokes 2PPD, she has smoked since the age of 15. She lives at home with her , Robin, she does not have any children. She reports being in great performance status up until about 4 weeks ago, states prior to this she could easily walk a flight of stairs without getting winded or needing a break. Family history of cancer includes her mother who from bladder cancer at age 94. Past Med Surg Social Fam HX - Past Medical History Medical history: arthritis, hyperlipidemia, hypertension Psychiatric history: depression - Past Surgical History Surgical History: orthopedic, other (shoulder x2 ) - Social History Smoking Status: Current every day smoker (since she was 15 y/o) Packs per day: 2 Smokeless Tobacco Status: No Alcohol use: none Drug use: none Constitutional: Present: as per HPI, chills, fatigue, fever(s), headache(s), malaise, weakness. Absent: anorexia, frequent falls, night sweats, weight loss Eyes: Present: blurry vision Nose, mouth and throat: Present: as per HPI, neck pain. Absent: dysphagia Cardiovascular: Present: orthopnea. Absent: chest pain Respiratory: Present: as per HPI, cough, dyspnea, wheezing. Absent: hemoptysis , stridor Gastrointestinal: Present: as per HPI. Absent: abdominal pain, change in bowel habits, nausea, vomiting Genitourinary: Present: as per HPI. Absent: dysuria, hematuria Musculoskeletal: Present: as per HPI, muscle weakness Integumentary: Present: as per HPI, rash. Absent: wounds Neurological: Present: as per HPI. Absent: focal weakness, frequent falls, numbness, tingling Psychiatric: Present: as per HPI Hematologic/Lymphatic: Present: as per HPI, lymphadenopathy Oncology - Exam - Constitutional Vitals: Temp Pulse Resp BP Pulse Ox 97.9 F 86 18 162/91 94 01/16/18 11:30 01/16/18 11:30 01/16/18 11:30 01/16/18 11:30 01/16/18 11:30 General appearance: cooperative, no acute distress, no febrile - Head Head exam: Present: atraumatic Additional comments: bilateral neck/facial edema - Eye Eye exam: Present: periorbital swelling, PERRL - ENT ENT exam: Present: mucous membranes moist - Respiratory Respiratory exam: Present: decreased breath sounds. Absent: respiratory distress - Cardiovascular Cardiovascular exam: Present: RRR, +S1, +S2 - GI/Abdominal GI/Abdominal exam: Present: normal bowel sounds, soft. Absent: guarding, rebound, tenderness - Extremities Exam Extremities exam: Absent: calf tenderness Additional comments: Edema to RUE - Neurological Exam Neurological exam: Present: alert, oriented X3, no focal deficits, strengths equal and symetr throughout - Psychiatric Additional comments: tearful - Skin Skin exam: Present: dry, intact, normal color, warm Oncology - Results Labs: 3 01/16/18 01/16/18 08:57 05:55 PT 10.6 INR 1.0 APTT 46.3 H Sodium 141 Potassium 4.0 Chloride 113 H Carbon Dioxide 21 L BUN 19 Creatinine 0.71 Est GFR ( Amer) > 60 Est GFR (Non-Af Amer) > 60 BUN/Creatinine Ratio 27 H Glucose 87 Calculated Osmolality 294 Calcium 8.9 Magnesium 2.1 Total Bilirubin 0.3 AST 13 ALT 15 Alkaline Phosphatase 59 Serum Total Protein 6.2 L Albumin 3.8 Globulin 2.4 Albumin/Globulin Ratio 1.6 Triglycerides 74 Cholesterol 148 LDL Cholesterol, Calc 86 VLDL Cholesterol, Calc 15 HDL Cholesterol 47 Cholesterol/HDL Ratio 3.1
[2018-01-16] MEDS ORDERED: *HR* Midazolam HCl 2 MG/2 ML VIAL IVP ONE (15:15)
[2018-01-16] MEDS ORDERED: 0.9 % Sodium Chloride 1,000 ML IVC SCH (15:15)
[2018-01-16] MEDS ORDERED: Tetracaine/Benzocaine/Butamben 200MG/SPRAY (100SPY/BOT) MM ONE (15:15)
[2018-01-16] MEDS ORDERED: Lidocaine Viscous Oral Soln 15 ML SOLUTION MM ONE (15:15)
[2018-01-16] MEDS ORDERED: *HR* EPINEPHrine 1 MG/10 ML SYRINGE INTRATRACH PRN (15:15)
[2018-01-16] MEDS ORDERED: Albuterol 2.5 MG/3 ML NEBULIZER IH ONE (15:15)
[2018-01-16] MEDS ORDERED: *HR* FentaNYL (PF) 100 MCG/2 ML VIAL IVP ONE (15:15)
--- NOTE | 2018-01-16 15:15 | Pre-Sedation Evaluation ---
Pre-sedation evaluation - Pre-sedation checklist Date of procedure: 01/16/18 Procedure: Bronchoscopy Recent Vitals: Last Vital Signs Temp 97.9 F 01/16/18 11:30 Pulse 86 01/16/18 11:30 Resp 18 01/16/18 11:30 BP 162/91 01/16/18 11:30 Pulse Ox 94 01/16/18 11:30 H&P (including ROS) documented in medical record: Yes Previous reaction to sedatives/anesthetics: No Dietary Status: NPO after Midnight Dentition: poor dentition, dentures removed Possible difficult airway: Yes If Yes;: Enlarged neck circumference, short neck ASA Classification *see protocol: CLASS III-Severe systemic disease Plan of Care: Pt appropriate candidate for procedure/moderate/conscious sedation , Risks/benefits of procedure/sedation discussed w/ patient/family
[2018-01-16] MEDS ORDERED: *HR* FentaNYL (PF) 100 MCG/2 ML VIAL ONE (15:49)
[2018-01-16] MEDS ORDERED: *HR* Midazolam HCl 5 MG/5 ML VIAL IVP ONE (15:49)
[2018-01-16] MEDS ORDERED: Lidocaine Viscous Oral Soln 15 ML SOLUTION ONE (15:50)
[2018-01-16] MEDS ORDERED: Albuterol 2.5 MG/3 ML NEBULIZER ONE (17:12)
[2018-01-16] MEDS ORDERED: Gadolinium Contrast Agent (WT Based) IV PRN (17:23)
--- NOTE | 2018-01-16 18:09 | Electrocardiograph Report ---
[place] [id number] Test Date: 2018-01-15 Pat Name: Lanny Ramires Department: 104 Room: [facility] Gender: F Human Capital Manager: [facility] : 1950 Requested By: Jevon Mendez Order Number: [id number] Reading MD: Marcos John Measurements Intervals [place] Rate: 104 P: 45 WI: 124 QRS: 25 QRSD: 71 T: 19 QT: 312 QTc: 373 Interpretive Statements SINUS TACHYCARDIA LOW QRS VOLTAGE IN PRECORDIAL LEADS Electronically Signed On 01-16-2018 18:08:19 EDT by Marcos John
[2018-01-16] MEDS ORDERED: *HR* EPINEPHrine 1 MG/10 ML SYRINGE ONE (18:54)
[2018-01-16 22:26] LABS: Protein/Creatinine Ratio,Urine 0.4 mg/mg (0.00-0.20)
[2018-01-17] MEDS: *HR* Heparin 5,000 UNIT/ML VIAL SQ SCH ×2 (06:27→19:45)
[2018-01-17] MEDS: Dexamethasone 4 MG/ML VIAL IVP SCH ×4 (06:27→19:45)
[2018-01-17 06:40] LABS: Basophils % 0.1 %; Hematocrit 37.9 % (35.3-44.9); Immature Granulocytes % 0.5 % (0-4); Lymphocytes # 0.6 K/mcL (0.6-4.6); Lymphocytes % 7.3 %; Mean Corpuscular HGB Conc 33.8 g/dL (31.6-35.5); Mean Corpuscular Hemoglobin 30.5 pg (28.0-33.3); Mean Corpuscular Volume 90.5 fL (83.0-100.0); Mean Platelet Volume 9.5 fL (9.4-12.4); Monocytes # 0.6 K/mcL (0.0-1.3); Monocytes % 7.3 %; Neutrophils # 7.3 K/mcL (1.6-8.9); Platelet Count 235 K/mcL (140-400); Red Blood Count 4.19 M/mcL (3.82-4.97); Red Cell Distribution Width 14.1 % (11.5-14.5); Segmented Neutrophils % 84.8 %
[2018-01-17 06:44] LABS: Hemoglobin 12.8 g/dL (11.5-15.4)
[2018-01-17 06:58] LABS: BUN/Creatinine Ratio 35 (6-26); Blood Urea Nitrogen 19 mg/dL (8-23); Calcium 9.3 mg/dL (8.6-10.3); Carbon Dioxide 21 mEq/L (23-29); Chloride 113 mEq/L (98-107); Glucose 123 mg/dL (70-105); Lactate Dehydrogenase 151 Units/L (140-271); Osmolality,Calculated 298 (280-300); Potassium 4.2 mEq/L (3.5-5.1); Sodium 142 mEq/L (136-145); eGFR For African Americans > 60 (> 60); eGFR For Non-African Americans > 60 (> 60)
[2018-01-17 09:21] LABS: Prothrombin Time 10.9 Seconds (9.4-12.1)
[2018-01-17] MEDS ORDERED: *HR* FentaNYL (PF) 100 MCG/2 ML VIAL IVP ONE (09:48)
[2018-01-17] MEDS ORDERED: *HR* Midazolam HCl 2 MG/2 ML VIAL IVP ONE (09:48)
--- NOTE | 2018-01-17 09:49 | Pre-Sedation Evaluation ---
Pre-sedation evaluation - Pre-sedation checklist Date of procedure: 01/17/18 Procedure: mediastinal biopsy Recent Vitals: Last Vital Signs Temp 99 F 01/17/18 07:37 Pulse 81 01/17/18 07:37 Resp 18 01/17/18 07:37 BP 155/69 01/17/18 07:37 Pulse Ox 94 01/17/18 07:37 H&P (including ROS) documented in medical record: Yes Previous reaction to sedatives/anesthetics: No Dietary Status: NPO after Midnight Airway Assessment: Patient can open mouth completely, TMJ function normal, Micrognathia (under-bite, receding chin) absent, Neck with adequate range of motion Dentition: poor dentition, dentures removed ASA Classification *see protocol: CLASS II-Mild systemic disease Plan of Care: Pt appropriate candidate for procedure/moderate/conscious sedation , Risks/benefits of procedure/sedation discussed w/ patient/family, If not NPO; Risk of intake outweiged by necessity to perform procedure
[2018-01-17] MEDS ORDERED: 0.9 % Sodium Chloride 500 ML ONE (10:04)
--- NOTE | 2018-01-17 10:17 | Pulmonology Progress Note ---
<Alva Ochoa - Last Filed: 01/17/18 13:57> Date of Encounter: 01/17/18 Time of Encounter: 10:17 Assessment and Plan (1) Mediastinal mass Current Visit: Yes Status: Acute Concern for malignancy, possibly small cell lung cancer or lymphoma 01/15/18 CXR: slightly increased fullness of right supra-/hilar region possibly representing prominent pulmonary vasculature d/t pulmonary edema vs lymph nodes ; trace right pleural effusion with right basilar opacities atelectasis vs infiltrate 01/15/18 CTA chest: No pulmonary embolism. Mediastinal and right hilar lymphadenopathy may represent lymphoma or metastatic disease. Bronchogenic carcinoma cannot be excluded. Lymphadenopathy causing mass effect on SVC, RUL pulmonary artery. Spiculated nodule in the RUL concerning for malignancy. Partially visualized right supraclavicular lymph nodes enlarged. Plan: Oncology following Results of tissue sample are pending (2) SVC syndrome Current Visit: Yes Status: Acute Plan: Continue supplemental oxygen Continue bronchodilators Subjective Interval history: Pt seen and examined this afternoon, her sister is at bedside. Pt feels well and her swelling has noticeably decreased since yesterday. Denies chest pain or increased shortness of breath. Still has cough, but productive with some dark blood in sputum. Otherwise, she has no complaints. She states her oxygen by nasal cannula had to be increased due to coughing. Objective PUL Vital signs: Last Vital Signs Temp 99 F 01/17/18 07:37 Pulse 84 01/17/18 10:12 Resp 14 01/17/18 10:12 BP 143/74 01/17/18 10:12 Pulse Ox 93 01/17/18 10:12 General appearance: no acute distress, AAO x 3, vitals reviewed Eyes: PERRL; periorbital swelling improved from yesterday; less facial swelling ENT: oropharynx moist Neck: decreased soft tissue swelling Respiratory Effort: normal effort Auscultation: no conversational dyspnea, diminished airflow RLL, lungs sound wet Cardiovascular: regular rate and rhythm Integumentary: rash (left cheek) Extremities: no cyanosis, no clubbing, pink and warm, RUE edema improved Results - Laboratory Findings CBC and BMP: 01/17/18 06:06 01/17/18 06:06 PT/INR, D-dimer PT 10.9 Seconds (9.4-12.1) 01/17/18 09:07 Abnormal lab findings: Abnormal lab results APTT 46.3 Seconds (26.0-36.0) H 01/16/18 08:57 Chloride 113 mEq/L (98-107) H 01/17/18 06:06 Carbon Dioxide 21 mEq/L (23-29) L 01/17/18 06:06 Creatinine 0.54 mg/dL (0.60-1.20) L 01/17/18 06:06 BUN/Creatinine Ratio 35 (6-26) H 01/17/18 06:06 Glucose 123 mg/dL (70-105) H 01/17/18 06:06 Serum Total Protein 6.2 g/dL (6.4-8.9) L 01/16/18 05:55 Urine Clarity Cloudy (Clear) A 01/15/18 22:17 Ur Specific [place] 1.028 (1.010-1.025) H 01/15/18 22:17 Urine Protein >=300 mg/dL (Neg-Trace) H 01/15/18 22:17 Urine Ketones Trace mg/dL (Negative) H 01/15/18 22:17 Urine Bilirubin Small (Negative) H 01/15/18 22:17 Urine Microscopic RBC 5-15 per hpf (0-3) H 01/15/18 22:17 Urine Microscopic WBC 5-15 per hpf (0-3) H 01/15/18 22:17 Ur Squamous Epith Cells Many per lpf (None-Few) H 01/15/18 22:17 Hyaline Casts Moderate per lpf (None-Few) H 01/15/18 22:17 Protein/Creatinin Ratio 0.40 mg/mg (0.00-0.20) H 01/16/18 21:56 Urine Total Protein 44 mg/dL (1-14) H 01/16/18 21:56 - Clinical Findings Intake & Output: Intake & Output 01/16/18 01/17/18 01/17/18 23:59 07:59 15:59 Intake Total 0 / 0 Balance 0 / 0 Weight 53.8 kg Consult Discharge Plan - Plan Referrals: Clinton Willams MD [Primary Care Provider] - <Puneet Farooq - Last Filed: 01/17/18 17:50> Date of Encounter: 01/17/18 Objective PUL Vital signs: Last Vital Signs Temp 98.7 F 01/17/18 17:42 Pulse 92 01/17/18 17:42 Resp 19 01/17/18 17:42 BP 131/77 01/17/18 17:42 Pulse Ox 94 01/17/18 17:42 Results - Laboratory Findings CBC and BMP: 01/17/18 06:06 01/17/18 06:06 PT/INR, D-dimer PT 10.9 Seconds (9.4-12.1) 01/17/18 09:07 Abnormal lab findings: Abnormal lab results APTT 46.3 Seconds (26.0-36.0) H 01/16/18 08:57 Chloride 113 mEq/L (98-107) H 01/17/18 06:06 Carbon Dioxide 21 mEq/L (23-29) L 01/17/18 06:06 Creatinine 0.54 mg/dL (0.60-1.20) L 01/17/18 06:06 BUN/Creatinine Ratio 35 (6-26) H 01/17/18 06:06 Glucose 123 mg/dL (70-105) H 01/17/18 06:06 Serum Total Protein 6.2 g/dL (6.4-8.9) L 01/16/18 05:55 Urine Clarity Cloudy (Clear) A 01/15/18 22:17 Ur Specific [place] 1.028 (1.010-1.025) H 01/15/18 22:17 Urine Protein >=300 mg/dL (Neg-Trace) H 01/15/18 22:17 Urine Ketones Trace mg/dL (Negative) H 01/15/18 22:17 Urine Bilirubin Small (Negative) H 01/15/18 22:17 Urine Microscopic RBC 5-15 per hpf (0-3) H 01/15/18 22:17 Urine Microscopic WBC 5-15 per hpf (0-3) H 01/15/18 22:17 Ur Squamous Epith Cells Many per lpf (None-Few) H 01/15/18 22:17 Hyaline Casts Moderate per lpf (None-Few) H 01/15/18 22:17 Protein/Creatinin Ratio 0.40 mg/mg (0.00-0.20) H 01/16/18 21:56 Urine Total Protein 44 mg/dL (1-14) H 01/16/18 21:56 - Clinical Findings Intake & Output: Intake & Output 01/17/18 01/17/18 01/17/18 07:59 15:59 23:59 Intake Total 600 / 600 Output Total 150 / 150 Balance 450 / 450 Weight 52.844 kg - Attending Attestation I examined this patient and my medical decision-making was reviewed with the Resident Physician. I agree with the documented findings, disposition and treatment plan as described except to the extent set forth below. Patient seen and examined. Labs, radiology, chart personally reviewed. Agree with resident's history and physical, assessment, plan with following comments: INKER MACHINE: Patient follows commands, Pulmonary: Acceptable oxygenation and ventilation. Bronchoscopy result of this still pending and communication with the pathology department was done to expedite result. I also discussed with interventional radiologist. Most likely this is small cell lung cancer. SVC syndrome is concerning and has oncology commented treatment needs to be started as soon as possible. For that SVC syndrome consider IR intervention.
--- NOTE | 2018-01-17 10:18 | Internal Med Progress Note ---
<Bright Benavidez - Last Filed: 01/17/18 10:16> Date of Encounter: 01/17/18 Time of Encounter: 10:16 - Assessment and plan (1) Mediastinal mass Current Visit: Yes Status: Acute Assessment and plan: Patient has large mediastinal and hilar masses/lymphadenopathy with peripheral lymphadenopathy including cervical and supraclavicular. 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 Patient underwent bronchoscopy and attempt to obtain tissue diagnosis however this procedure was complicated by significant bleeding. Sample was obtained but is unclear if this is getting to be adequate for pathology review. Discussed with oncology and interventional radiology, they feel that there is an easily accessible superior lateral anterior mediastinal lymph node that can be obtained via CT-guided biopsy which will be attempted today. Once diagnosis is made patient will likely begin therapy as an inpatient given her complicating factors including SVC syndrome. Oncology is following and will make recommendations regarding treatment once tissue diagnosis was obtained. Further metastatic workup to this point has been negative including brain MRI which shows no evidence of brain metastasis. Patient will need CT/PET as an outpatient to complete metastatic workup. Continue Decadron 4 mg IV every 6 (2) SVC syndrome Current Visit: Yes Status: Acute Assessment and plan: Secondary to mediastinal mass as discussed above. Patient has facial swelling but no evidence of airway compromise. We will attempt to obtain a diagnosis of the mass as quickly as possible to begin treatment which should shrink the mass and improve her symptoms related to SVC syndrome, however there is a significant delay in the patient's symptoms worsen will discuss with IR and asked them to put in an SVC stent (3) Proteinuria Current Visit: Yes Status: Acute Assessment and plan: Unclear etiology. Creatinine function normal. Protein creatinine ratio is 0.4. Currently on an TORI inhibitor, we will continue this. We will check hemoglobin A1c to screen for diabetes as the patient has had elevated blood sugars during this hospitalization although this could be secondary to steroid use. Qualifiers: Proteinuria type: unspecified Qualified Code(s): R80.9 - Proteinuria, unspecified (4) HTN (hypertension) Current Visit: Yes Status: Acute Assessment and plan: Mildly elevated this morning. We will restart home lisinopril, continue to monitor. Qualifiers: Hypertension type: essential hypertension Qualified Code(s): I10 - Essential (primary) hypertension (5) HLD (hyperlipidemia) Current Visit: Yes Status: Acute Assessment and plan: Stable. Lipid panel shows lipids under good control. Hold lovastatin positive patient will restart at discharge Qualifiers: Hyperlipidemia type: pure hypercholesterolemia Qualified Code(s): E78.00 - Pure hypercholesterolemia, unspecified; E78.0 - Pure hypercholesterolemia (6) Depression Current Visit: Yes Status: Acute Assessment and plan: Stable. Continue Paxil. Qualifiers: Depression Type: major depressive disorder Major depression recurrence: unspecified whether recurrent Active/Remission status: in full remission Qualified Code(s): F32.5 - Major depressive disorder, single episode, in full remission - Time Spent With Patient Total time spent is greater than 50% in coordination of care (as documented) at patient's floor/unit and/or counseling patient: - Subjective Interval history: Patient seen and examined at bedside. Patient states that she feels. This morning. She reports mild shortness of breath that is relieved with supplemental oxygen. She reports occasional cough that is occasionally productive with small amounts of dark blood. She has fever, chills, chest pain. - Constitutional Vitals: Temp Pulse Resp BP Pulse Ox 99 F 84 14 143/74 93 01/17/18 07:37 01/17/18 10:12 01/17/18 10:12 01/17/18 10:12 01/17/18 10:12 General appearance: Present: A&O X 3, pleasant, no acute distress - Eye Additional comments: Facial plethora noted - ENT ENT exam: Present: mucous membranes moist - Neck Neck exam general surgery: Present: lymphadenopathy (Anterior/posterior chain, supraclavicular nodes noted) - Respiratory Respiratory exam: Present: decreased breath sounds. Absent: rales, rhonchi, wheezes - Cardiovascular Cardiovascular exam: Present: RRR. Absent: gallop, rubs, systolic murmur - GI/Abdominal GI/Abdominal exam: Present: soft. Absent: distended, tenderness - Extremities Exam Extremities exam: Present: warm. Absent: pedal edema, tenderness - Neurological Exam Neurological exam: Present: alert, CN II-XII intact, oriented X3, no focal deficits Internal Medicine: Result - Labs CBC & Chem 7: 01/17/18 06:06 01/17/18 06:06 Labs: Short CBC 01/17/18 Range/Units 06:06 WBC 8.6 (4.3-11.1) K/mcL Hgb 12.8 D (11.5-15.4) g/dL Hct 37.9 (35.3-44.9) % Plt Count 235 (140-400) K/mcL Neutrophils # 7.3 (1.6-8.9) K/mcL BMP 01/17/18 06:06 Sodium 142 Potassium 4.2 Chloride 113 H Carbon Dioxide 21 L BUN 19 Creatinine 0.54 L Glucose 123 H Calcium 9.3 - ABG Interpretation ABG results: PT/INR, D-dimer PT 10.9 Seconds (9.4-12.1) 01/17/18 09:07 - Impressions Impressions Brain MRI 01/16/18 10:00 IMPRESSION: Moderate chronic small vessel ischemic changes. There are no areas of restricted diffusion to suggest an acute ischemic event. No abnormal areas of enhancement in the brain parenchyma. D/ / 01/16/2018 19:13:34 Norma Leonardo MD / [email or web address] Interpreting Provider: Norma Leonardo MD Consult Discharge Plan - Plan Referrals: Clinton Willams MD [Primary Care Provider] - <Jason Cannon - Last Filed: 01/17/18 16:56> Date of Encounter: 01/17/18 - Time Spent With Patient Total time spent is greater than 50% in coordination of care (as documented) at patient's floor/unit and/or counseling patient: - Constitutional Vitals: Temp Pulse Resp BP Pulse Ox 98.1 F 88 18 141/86 92 01/17/18 15:45 01/17/18 15:45 01/17/18 15:45 01/17/18 15:45 01/17/18 15:45 Internal Medicine: Result - Labs CBC & Chem 7: 01/17/18 06:06 01/17/18 06:06 Labs: Short CBC 01/17/18 Range/Units 06:06 WBC 8.6 (4.3-11.1) K/mcL Hgb 12.8 D (11.5-15.4) g/dL Hct 37.9 (35.3-44.9) % Plt Count 235 (140-400) K/mcL Neutrophils # 7.3 (1.6-8.9) K/mcL BMP 01/17/18 06:06 Sodium 142 Potassium 4.2 Chloride 113 H Carbon Dioxide 21 L BUN 19 Creatinine 0.54 L Glucose 123 H Calcium 9.3 - ABG Interpretation ABG results: PT/INR, D-dimer PT 10.9 Seconds (9.4-12.1) 01/17/18 09:07 - Impressions Impressions Echocardiogram 01/16/18 00:57 Impressions: LVEF 65-70%. Normal LV chamber size, wall thickness and function. Mild left ventricular diastolic dysfunction. Normal right ventricular structure and function. No significant valvular dysfunction. No evidence of pulmonary hypertension. There is a moderate to large circumferential pericardial effusion present, which was largest anteriorly and adjacent to the right atrium. There is no definite echocardiographic evidence of tamponade. Recommend a repeat study within 48 hours to re-evaluate effusion or sooner if clinically indicated. Clinical correlation suggested. Left Ventricular Wall Motion: Rest Echo Findings All wall segments showed normal motion. Findings: Study Quality * Technically adequate exam. ECG Findings * Normal sinus rhythm. Left Ventricle * LVEF 65-70%. * Normal LV chamber size, wall thickness and function. * Mild left ventricular diastolic dysfunction. Right Ventricle * Normal right ventricular structure and function. Left Atrium * Mildly dilated left atrium. Right Atrium * Normal right atrial size. Aortic Valve * Aortic valve not well visualized. * No aortic regurgitation. * No aortic stenosis. Mitral Valve * Normal mitral valve structure and function. * No mitral regurgitation. * No mitral stenosis. Tricuspid Valve * Normal tricuspid valve structure and function. * Trace tricuspid regurgitation. * No evidence of pulmonary hypertension. Pulmonic Valve * Pulmonic valve is not well visualized. * No pulmonic regurgitation. Aorta * Normally sized aortic root. Pericardium * There is a moderate to large circumferential pericardial effusion present, which was largest anteriorly and adjacent to the right atrium. * There is no echocardiographic evidence of tamponade. IVC * Normal IVC dimensions and inspiratory collapse. Pulmonary Artery * Normal visualized portions of the main pulmonary artery. Brain MRI 01/16/18 10:00 IMPRESSION: Moderate chronic small vessel ischemic changes. There are no areas of restricted diffusion to suggest an acute ischemic event. No abnormal areas of enhancement in the brain parenchyma. D/ / 01/16/2018 19:13:34 Norma Leonardo MD / [email or web address] Interpreting Provider: Norma Leonardo MD Biopsy CT 01/17/18 00:00 IMPRESSION: Successful CT guided core biopsy of the mediastinum. D/ / 01/17/2018 10:52:21 Tiffani Meza MD / Coleen Lennon Interpreting Provider: Tiffani Meza MD Chest X-Ray 01/17/18 10:32 IMPRESSION: Moderate-size right pleural effusion with associated right lower lobe atelectasis which has progressed New small left pleural effusion D/ / 01/17/2018 11:01:54 Colin Chowdhury MD / marlo Interpreting Provider: Colin Chowdhury MD - Attending Attestation I saw and examined this patient independently, and my medical decision making was reviewed with the Resident on 2017. I agree with the documented findings, assessment and treatment plan as described in the progress note.
--- NOTE | 2018-01-17 10:34 | IR Procedure Note ---
Date of procedure: 01/17/18 Consent Obtained: Written consent Timeout: Correct patient and procedure verified, Correct site verified, Time out performed, Skin prep completed Indications: lung cancer Procedure Performed: mediastinal biopsy Was there an accounting manager assistant controller present: No Site/Technique: mediastinum, 18G gun, 4 cores Results/Findings: diagnostic Estimated blood loss (cc): 2 Complications: None; Tolerated procedure well Post Procedure Treatment Plan: CXR Specimen: 4 cores, mediastinum
--- NOTE | 2018-01-17 16:13 | Oncology Inp Progress Note ---
<Kim Neely L - Last Filed: 01/18/18 07:57> Date of Encounter: 01/17/18 Time of Encounter: 15:00 (1) Lymphadenopathy Current Visit: Yes Status: Acute Assessment and plan: CTA chest revealed bulky mediastinal and right hilar lymphadenopathy, Lymphadenopathy contributes to extrinsic mass effect upon the SVC, right upper lobar pulmonary artery and to a lesser degree the right upper lobar bronchus, Spiculated nodule also noted in the right upper lobe of concern for malignancy and Partial visualization of right supraclavicular lymph nodes which are also enlarged. Imagining concerning for Small Cell Lung Cancer, Lymphoma, among others. Bronchoscopy complicated with bleeding, biopsy may be non diagnostic. Patient had CT guided core needle biopsy of her mediastinal mass/lymphadenopathy today. I discussed situation with pathology today and the need to expedite pathology reading as much as possible. Plan to begin inpatient chemotherapy and/or radiation therapy drew, dependent upon final pathology. MRI brain wo/w- negative for metastatic disease Will plan for PET/CT as outpatient. Allopurinol started. (2) SVC (superior vena cava obstruction) Current Visit: Yes Status: Acute Assessment and plan: Secondary to extrinsic compression. Periorbital edema, facial/neck edema, RUE edema. Patient is stable and without display of stridor, no dysphagia. Continue decadron. We are hopeful to expedite biopsy/pathology process to determine appropriate treatment course. Plan to initiate inpatient chemotherapy and/or radiation therapy, dependent upon final pathology report, to aid in relief of symptoms. If process cannot be expedited by end of week or symptoms worsen at any point, consider SVC stent placement She has now developed erythema to the medial aspect of her right upper extremity. Check venous doppler. Oncology: Subj Interval history: Ms. Ramires is resting in bed. Her sister is at bedside. She denies pain. She is in no respiratory distress, no stridor noted. She feels as though her edema may have slightly improved since yesterday. - Constitutional Vitals: Vital Signs Temp Pulse Resp BP Pulse Ox 01/17/18 12:10 98.2 F 89 16 151/81 91 01/17/18 10:30 86 20 147/87 96 01/17/18 10:12 84 14 143/74 93 01/17/18 10:08 84 16 146/73 92 01/17/18 10:03 88 14 148/81 93 01/17/18 09:46 90 20 158/81 01/17/18 07:37 99 F 81 18 155/69 94 01/17/18 04:26 98.0 F 81 16 158/85 93 01/16/18 23:43 97.8 F 84 16 138/76 91 01/16/18 19:53 94 01/16/18 19:24 98.1 F 101 16 156/74 94 01/16/18 18:07 93 01/16/18 17:39 98.9 F 100 14 151/83 93 01/16/18 16:49 106 18 149/73 95 01/16/18 16:44 109 18 141/70 95 01/16/18 16:39 113 18 161/74 93 01/16/18 16:34 124 18 180/89 88 01/16/18 16:29 124 18 210/111 84 01/16/18 16:24 125 18 217/107 94 01/16/18 16:19 102 18 175/88 97 01/16/18 16:14 97.9 F 127 18 175/92 97 Intake and Output 01/17/18 01/17/18 01/17/18 07:59 15:59 23:59 Intake Total 600 / 600 Balance 600 / 600 Intake: Oral 600 / 600 Other: Meal Lunch Percent of Meal Consumed 50% General appearance: cooperative, no acute distress, no febrile - Eye Eye exam: Present: periorbital swelling Additional comments: facial/neck swelling - ENT ENT exam: Present: mucous membranes moist - Neck Neck exam: Present: lymphadenopathy, tenderness - Respiratory Respiratory exam: Present: decreased breath sounds, CTAB. Absent: respiratory distress - Cardiovascular Cardiovascular exam: Present: RRR, +S1, +S2 - GI/Abdominal GI/Abdominal exam: Present: normal bowel sounds, soft. Absent: tenderness - Extremities Exam Extremities exam: Present: normal inspection. Absent: calf tenderness - Neurological Exam Neurological exam: Present: alert, oriented X3, no focal deficits, strengths equal and symetr throughout - Psychiatric Psychiatric exam: Present: normal affect, normal mood - Skin Skin exam: Present: dry, intact, warm Oncology: Obj Data - Labs CBC & Chem 7: 01/18/18 03:56 01/18/18 03:56 - Impressions Impressions Echocardiogram 01/16/18 00:57 Impressions: LVEF 65-70%. Normal LV chamber size, wall thickness and function. Mild left ventricular diastolic dysfunction. Normal right ventricular structure and function. No significant valvular dysfunction. No evidence of pulmonary hypertension. There is a moderate to large circumferential pericardial effusion present, which was largest anteriorly and adjacent to the right atrium. There is no definite echocardiographic evidence of tamponade. Recommend a repeat study within 48 hours to re-evaluate effusion or sooner if clinically indicated. Clinical correlation suggested. Left Ventricular Wall Motion: Rest Echo Findings All wall segments showed normal motion. Findings: Study Quality * Technically adequate exam. ECG Findings * Normal sinus rhythm. Left Ventricle * LVEF 65-70%. * Normal LV chamber size, wall thickness and function. * Mild left ventricular diastolic dysfunction. Right Ventricle * Normal right ventricular structure and function. Left Atrium * Mildly dilated left atrium. Right Atrium * Normal right atrial size. Aortic Valve * Aortic valve not well visualized. * No aortic regurgitation. * No aortic stenosis. Mitral Valve * Normal mitral valve structure and function. * No mitral regurgitation. * No mitral stenosis. Tricuspid Valve * Normal tricuspid valve structure and function. * Trace tricuspid regurgitation. * No evidence of pulmonary hypertension. Pulmonic Valve * Pulmonic valve is not well visualized. * No pulmonic regurgitation. Aorta * Normally sized aortic root. Pericardium * There is a moderate to large circumferential pericardial effusion present, which was largest anteriorly and adjacent to the right atrium. * There is no echocardiographic evidence of tamponade. IVC * Normal IVC dimensions and inspiratory collapse. Pulmonary Artery * Normal visualized portions of the main pulmonary artery. Brain MRI 01/16/18 10:00 IMPRESSION: Moderate chronic small vessel ischemic changes. There are no areas of restricted diffusion to suggest an acute ischemic event. No abnormal areas of enhancement in the brain parenchyma. D/ / 01/16/2018 19:13:34 Norma Leonardo MD / jacqueline Interpreting Provider: Norma Leonardo MD Biopsy CT 01/17/18 00:00 IMPRESSION: Successful CT guided core biopsy of the mediastinum. D/ /17/2018 10:52:21 Tiffani Meza MD / Coleen Lennon Interpreting Provider: Tiffani Meza MD Chest X-Ray 01/17/18 10:32 IMPRESSION: Moderate-size right pleural effusion with associated right lower lobe atelectasis which has progressed New small left pleural effusion D/ / 01/17/2018 11:01:54 Colin Chowdhury MD / marlo Interpreting Provider: Colin Chowdhury MD - ABG Interpretation ABG results: PT/INR, D-dimer PT 10.9 Seconds (9.4-12.1) 01/17/18 09:07 Consult Discharge Plan - Plan Referrals: Clinton Willams MD [Primary Care Provider] - <Gretchen Huitron S - Last Filed: 01/18/18 18:10> Date of Encounter: 01/18/18 - Constitutional Vitals: Vital Signs Temp Pulse Resp BP Pulse Ox 01/18/18 14:07 97.8 F 79 19 125/78 98 01/18/18 11:06 98.2 F 86 17 137/78 96 01/18/18 07:29 98.2 F 73 18 152/80 97 01/18/18 05:52 97.9 F 83 16 153/79 90 01/18/18 00:11 98.7 F 81 16 128/75 92 01/17/18 20:25 99 F 82 16 135/72 94 Intake and Output 01/18/18 01/18/18 01/18/18 07:59 15:59 23:59 Intake Total 0 / 0 Output Total 0 / 0 Balance 0 / 0 Intake: Oral 0 / 0 Output: Urine 0 / 0 Other: # Voids 1 Weight 52.84 kg Patient Weight 01/18/18 23:59 Weight 52.84 kg Oncology: Obj Data - Labs CBC & Chem 7: 01/18/18 03:56 01/18/18 03:56 Labs: Laboratory Results - last 24 hr 01/18/18 01/18/18 01/18/18 03:56 03:56 03:56 WBC 9.9 RBC 4.28 Hgb 12.9 Hct 38.8 MCV 90.7 MCH 30.1 MCHC 33.2 RDW 14.1 Plt Count 237 MPV 9.7 Immature Gran % 0.4 Seg Neutrophils % 86.0 Lymphocytes % 7.6 Monocytes % 5.9 Eosinophils % 0.0 Basophils % 0.1 Neutrophils # 8.5 Lymphocytes # 0.8 Monocytes # 0.6 Eosinophils # 0.0 Basophils # 0.0 Sodium 138 Potassium 3.9 Chloride 110 H Carbon Dioxide 21 L BUN 15 Creatinine 0.62 Est GFR ( Amer) > 60 Est GFR (Non-Af Amer) > 60 BUN/Creatinine Ratio 24 Glucose 112 H Est Mean Plasma Glucose 123 Hemoglobin A1c 5.9 H Calculated Osmolality 288 Calcium 9.2 - Impressions Impressions Brain MRI 01/16/18 10:00 IMPRESSION: Moderate chronic small vessel ischemic changes. There are no areas of restricted diffusion to suggest an acute ischemic event. No abnormal areas of enhancement in the brain parenchyma. D/ / 01/16/2018 19:13:34 Norma Leonardo MD / jacqueline Interpreting Provider: Norma Leonardo MD - ABG Interpretation ABG results: PT/INR, D-dimer PT 10.9 Seconds (9.4-12.1) 01/17/18 09:07 - Attending Attestation I examined this patient and my medical decision-making was reviewed with the Advanced Practice Nurse. I agree with the documented findings, disposition and treatment plan as described except to the extent set forth below. 1. Small cell lung cancer confirmed by biopsy 01/17/2018 CT scan showed bulky mediastinal adenopathy causing SVC syndrome. To complete staging she needs a PET scan or CT abdomen and pelvis MRI brain negative for metastasis Allopurinol 300 mg PO HS Start chemotherapy On 01/18/2018 CBC and metabolic panel unremarkable 2. Mild swelling and pain in the right upper extremity. Venous Doppler negative for DVT
[2018-01-18] MEDS ORDERED: Furosemide 20 MG/2 ML VIAL IV PRN
[2018-01-18] MEDS ORDERED: 0.9 % Sodium Chloride w KCl 20 MEQ/1,000 ML MLS IVC ONE
[2018-01-18] MEDS ORDERED: *HR* LORazepam 2 MG/ML VIAL IV PRN ×3
[2018-01-18] MEDS ORDERED: Famotidine 20 MG/2 ML VIAL IV PRN ×3
[2018-01-18] MEDS ORDERED: Dexamethasone 10 MG/ML VIAL IV ONE ×3
[2018-01-18] MEDS ORDERED: Prochlorperazine 10 MG/2 ML VIAL IV PRN ×3
[2018-01-18] MEDS ORDERED: MAGNESIUM SULFATE IV SCH
[2018-01-18] MEDS ORDERED: Fosaprepitant Dimeglumine 150 MG in 0.9 % Sodium Chloride 250 ML IV SCH
[2018-01-18] MEDS ORDERED: CISPLATIN IV SCH
[2018-01-18] MEDS ORDERED: Dexamethasone 10 MG/ML VIAL IV PRN ×3
[2018-01-18] MEDS ORDERED: 0.9 % Sodium Chloride 500 ML IVC SCH
[2018-01-18] MEDS: Dexamethasone 4 MG/ML VIAL IVP SCH ×4 (01:45→20:40)
[2018-01-18 04:59] LABS: Basophils % 0.1 %; Hematocrit 38.8 % (35.3-44.9); Hemoglobin 12.9 g/dL (11.5-15.4); Immature Granulocytes % 0.4 % (0-4); Lymphocytes # 0.8 K/mcL (0.6-4.6); Lymphocytes % 7.6 %; Mean Corpuscular HGB Conc 33.2 g/dL (31.6-35.5); Mean Corpuscular Hemoglobin 30.1 pg (28.0-33.3); Mean Corpuscular Volume 90.7 fL (83.0-100.0); Mean Platelet Volume 9.7 fL (9.4-12.4); Monocytes # 0.6 K/mcL (0.0-1.3); Monocytes % 5.9 %; Neutrophils # 8.5 K/mcL (1.6-8.9); Platelet Count 237 K/mcL (140-400); Red Blood Count 4.28 M/mcL (3.82-4.97); Red Cell Distribution Width 14.1 % (11.5-14.5)
[2018-01-18 05:22] LABS: BUN/Creatinine Ratio 24 (6-26); Blood Urea Nitrogen 15 mg/dL (8-23); Calcium 9.2 mg/dL (8.6-10.3); Carbon Dioxide 21 mEq/L (23-29); Chloride 110 mEq/L (98-107); Glucose 112 mg/dL (70-105); Osmolality,Calculated 288 (280-300); Potassium 3.9 mEq/L (3.5-5.1); Sodium 138 mEq/L (136-145); eGFR For African Americans > 60 (> 60); eGFR For Non-African Americans > 60 (> 60)
[2018-01-18] MEDS: *HR* Heparin 5,000 UNIT/ML VIAL SQ SCH ×2 (06:17→18:47)
[2018-01-18 08:19] LABS: Estimated Average Glucose 123 mg/dl; Hemoglobin A1C 5.9 %
--- NOTE | 2018-01-18 10:33 | Internal Med Progress Note ---
Date of Encounter: 01/18/18 Time of Encounter: 10:30 - Assessment and plan (1) Small cell lung cancer Current Visit: Yes Status: Acute Assessment and plan: Clinical picture likely consistent with small cell lung cancer. Biopsy results pending. Oncology plan to start inpatient chemotherapy (2) Mediastinal mass Current Visit: Yes Status: Acute Assessment and plan: Patient has large mediastinal and hilar masses/lymphadenopathy with peripheral lymphadenopathy including cervical and supraclavicular. 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 Patient underwent bronchoscopy and attempt to obtain tissue diagnosis however this procedure was complicated by significant bleeding. Sample was obtained but is unclear if this is getting to be adequate for pathology review. Discussed with oncology and interventional radiology, they feel that there is an easily accessible superior lateral anterior mediastinal lymph node that can be obtained via CT-guided biopsy which will be attempted today. Once diagnosis is made patient will likely begin therapy as an inpatient given her complicating factors including SVC syndrome. Oncology is following and will make recommendations regarding treatment once tissue diagnosis was obtained. Further metastatic workup to this point has been negative including brain MRI which shows no evidence of brain metastasis. Patient will need CT/PET as an outpatient to complete metastatic workup. Continue Decadron 4 mg IV every 6 01/18. Awaiting biopsy results. Clinical picture likely consistent with small cell lung cancer (3) SVC syndrome Current Visit: Yes Status: Acute Assessment and plan: Secondary to mediastinal mass as discussed above. Patient has facial swelling but no evidence of airway compromise. We will attempt to obtain a diagnosis of the mass as quickly as possible to begin treatment which should shrink the mass and improve her symptoms related to SVC syndrome, however there is a significant delay in the patient's symptoms worsen will discuss with IR and asked them to put in an SVC stent (4) Proteinuria Current Visit: Yes Status: Acute Assessment and plan: Unclear etiology. Creatinine function normal. Protein creatinine ratio is 0.4. Currently on an TORI inhibitor, we will continue this. We will check hemoglobin A1c to screen for diabetes as the patient has had elevated blood sugars during this hospitalization although this could be secondary to steroid use. Qualifiers: Proteinuria type: unspecified Qualified Code(s): R80.9 - Proteinuria, unspecified (5) HTN (hypertension) Current Visit: Yes Status: Acute Assessment and plan: Mildly elevated this morning. We will restart home lisinopril, continue to monitor. Qualifiers: Hypertension type: essential hypertension Qualified Code(s): I10 - Essential (primary) hypertension (6) HLD (hyperlipidemia) Current Visit: Yes Status: Acute Assessment and plan: Stable. Lipid panel shows lipids under good control. Hold lovastatin positive patient will restart at discharge Qualifiers: Hyperlipidemia type: pure hypercholesterolemia Qualified Code(s): E78.00 - Pure hypercholesterolemia, unspecified; E78.0 - Pure hypercholesterolemia (7) Depression Current Visit: Yes Status: Acute Assessment and plan: Stable. Continue Paxil. Qualifiers: Depression Type: major depressive disorder Major depression recurrence: unspecified whether recurrent Active/Remission status: in full remission Qualified Code(s): F32.5 - Major depressive disorder, single episode, in full remission - Time Spent With Patient Total time spent is greater than 50% in coordination of care (as documented) at patient's floor/unit and/or counseling patient: - Subjective Interval history: No acute events overnight - Constitutional Vitals: Temp Pulse Resp BP Pulse Ox 98.2 F 73 18 152/80 97 01/18/18 07:29 01/18/18 07:29 01/18/18 07:29 01/18/18 07:29 01/18/18 07:29 General appearance: Present: A&O X 3, pleasant, no acute distress - Head Head exam: Present: atraumatic, normocephalic Additional comments: Facial swelling - Eye Eye exam: Present: PERRL, conjuntiva pink, sclera anicteric Pupils: Present: PERRL - Neck Neck exam general surgery: Present: supple, trachea midline. Absent: lymphadenopathy - Respiratory Respiratory exam: Present: CTAB. Absent: accessory muscle use, rales, rhonchi, wheezes - Cardiovascular Cardiovascular exam: Present: RRR, +S1, +S2. Absent: diastolic murmur, gallop, rubs, systolic murmur - GI/Abdominal GI/Abdominal exam: Present: normal bowel sounds, soft, no peritoneal signs. Absent: distended, tenderness - Extremities Exam Extremities exam: Present: warm, radial pulses palpable and symmetrical. Absent : calf tenderness, cyanotic, pedal edema - Neurological Exam Neurological exam: Present: CN II-XII intact, oriented X3, no focal deficits. Absent: pronater drift, facial droop, speech deficit - Skin Skin exam: Present: dry, intact Internal Medicine: Result - Labs CBC & Chem 7: 01/18/18 03:56 01/18/18 03:56 Labs: Short CBC 01/18/18 Range/Units 03:56 WBC 9.9 (4.3-11.1) K/mcL Hgb 12.9 (11.5-15.4) g/dL Hct 38.8 (35.3-44.9) % Plt Count 237 (140-400) K/mcL Neutrophils # 8.5 (1.6-8.9) K/mcL BMP 01/18/18 03:56 Sodium 138 Potassium 3.9 Chloride 110 H Carbon Dioxide 21 L BUN 15 Creatinine 0.62 Glucose 112 H Calcium 9.2 - ABG Interpretation ABG results: PT/INR, D-dimer PT 10.9 Seconds (9.4-12.1) 01/17/18 09:07 - Impressions Impressions Echocardiogram 01/16/18 00:57 Impressions: LVEF 65-70%. Normal LV chamber size, wall thickness and function. Mild left ventricular diastolic dysfunction. Normal right ventricular structure and function. No significant valvular dysfunction. No evidence of pulmonary hypertension. There is a moderate to large circumferential pericardial effusion present, which was largest anteriorly and adjacent to the right atrium. There is no definite echocardiographic evidence of tamponade. Recommend a repeat study within 48 hours to re-evaluate effusion or sooner if clinically indicated. Clinical correlation suggested. Left Ventricular Wall Motion: Rest Echo Findings All wall segments showed normal motion. Findings: Study Quality * Technically adequate exam. ECG Findings * Normal sinus rhythm. Left Ventricle * LVEF 65-70%. * Normal LV chamber size, wall thickness and function. * Mild left ventricular diastolic dysfunction. Right Ventricle * Normal right ventricular structure and function. Left Atrium * Mildly dilated left atrium. Right Atrium * Normal right atrial size. Aortic Valve * Aortic valve not well visualized. * No aortic regurgitation. * No aortic stenosis. Mitral Valve * Normal mitral valve structure and function. * No mitral regurgitation. * No mitral stenosis. Tricuspid Valve * Normal tricuspid valve structure and function. * Trace tricuspid regurgitation. * No evidence of pulmonary hypertension. Pulmonic Valve * Pulmonic valve is not well visualized. * No pulmonic regurgitation. Aorta * Normally sized aortic root. Pericardium * There is a moderate to large circumferential pericardial effusion present, which was largest anteriorly and adjacent to the right atrium. * There is no echocardiographic evidence of tamponade. IVC * Normal IVC dimensions and inspiratory collapse. Pulmonary Artery * Normal visualized portions of the main pulmonary artery. Brain MRI 01/16/18 10:00 IMPRESSION: Moderate chronic small vessel ischemic changes. There are no areas of restricted diffusion to suggest an acute ischemic event. No abnormal areas of enhancement in the brain parenchyma. D/ / 01/16/2018 19:13:34 Norma Leonardo MD / jacqueline Interpreting Provider: Norma Leonardo MD Biopsy CT 01/17/18 00:00 IMPRESSION: Successful CT guided core biopsy of the mediastinum. D/ /17/2018 10:52:21 Tiffani Meza MD / Coleen Lennon Interpreting Provider: Tiffani Meza MD Chest X-Ray 01/17/18 10:32 IMPRESSION: Moderate-size right pleural effusion with associated right lower lobe atelectasis which has progressed New small left pleural effusion D/ / 01/17/2018 11:01:54 Colin Chowdhury MD / marlo Interpreting Provider: Colin Chowdhury MD Consult Discharge Plan - Plan Referrals: Clinton Willams MD [Primary Care Provider] -
--- NOTE | 2018-01-18 12:28 | Oncology Inp Progress Note ---
<Gretchen Huitron S - Last Filed: 01/18/18 14:49> Date of Encounter: 01/18/18 - Constitutional Vitals: Vital Signs Temp Pulse Resp BP Pulse Ox 01/18/18 14:07 97.8 F 79 19 125/78 98 01/18/18 11:06 98.2 F 86 17 137/78 96 01/18/18 07:29 98.2 F 73 18 152/80 97 01/18/18 05:52 97.9 F 83 16 153/79 90 01/18/18 00:11 98.7 F 81 16 128/75 92 01/17/18 20:25 99 F 82 16 135/72 94 01/17/18 17:42 98.7 F 92 19 131/77 94 01/17/18 15:45 98.1 F 88 18 141/86 92 Intake and Output 01/17/18 01/18/18 01/18/18 23:59 07:59 15:59 Intake Total 0 / 0 Output Total 0 / 0 Balance 0 / 0 Intake: Oral 0 / 0 Output: Urine 0 / 0 Other: # Voids 1 Weight 52.844 kg 52.84 kg Patient Weight 01/18/18 23:59 Weight 52.84 kg Oncology: Obj Data - Labs CBC & Chem 7: 01/18/18 03:56 01/18/18 03:56 Labs: Laboratory Results - last 24 hr 01/18/18 01/18/18 01/18/18 03:56 03:56 03:56 WBC 9.9 RBC 4.28 Hgb 12.9 Hct 38.8 MCV 90.7 MCH 30.1 MCHC 33.2 RDW 14.1 Plt Count 237 MPV 9.7 Immature Gran % 0.4 Seg Neutrophils % 86.0 Lymphocytes % 7.6 Monocytes % 5.9 Eosinophils % 0.0 Basophils % 0.1 Neutrophils # 8.5 Lymphocytes # 0.8 Monocytes # 0.6 Eosinophils # 0.0 Basophils # 0.0 Sodium 138 Potassium 3.9 Chloride 110 H Carbon Dioxide 21 L BUN 15 Creatinine 0.62 Est GFR ( Amer) > 60 Est GFR (Non-Af Amer) > 60 BUN/Creatinine Ratio 24 Glucose 112 H Est Mean Plasma Glucose 123 Hemoglobin A1c 5.9 H Calculated Osmolality 288 Calcium 9.2 - Impressions Impressions Echocardiogram 01/16/18 00:57 Impressions: LVEF 65-70%. Normal LV chamber size, wall thickness and function. Mild left ventricular diastolic dysfunction. Normal right ventricular structure and function. No significant valvular dysfunction. No evidence of pulmonary hypertension. There is a moderate to large circumferential pericardial effusion present, which was largest anteriorly and adjacent to the right atrium. There is no definite echocardiographic evidence of tamponade. Recommend a repeat study within 48 hours to re-evaluate effusion or sooner if clinically indicated. Clinical correlation suggested. Left Ventricular Wall Motion: Rest Echo Findings All wall segments showed normal motion. Findings: Study Quality * Technically adequate exam. ECG Findings * Normal sinus rhythm. Left Ventricle * LVEF 65-70%. * Normal LV chamber size, wall thickness and function. * Mild left ventricular diastolic dysfunction. Right Ventricle * Normal right ventricular structure and function. Left Atrium * Mildly dilated left atrium. Right Atrium * Normal right atrial size. Aortic Valve * Aortic valve not well visualized. * No aortic regurgitation. * No aortic stenosis. Mitral Valve * Normal mitral valve structure and function. * No mitral regurgitation. * No mitral stenosis. Tricuspid Valve * Normal tricuspid valve structure and function. * Trace tricuspid regurgitation. * No evidence of pulmonary hypertension. Pulmonic Valve * Pulmonic valve is not well visualized. * No pulmonic regurgitation. Aorta * Normally sized aortic root. Pericardium * There is a moderate to large circumferential pericardial effusion present, which was largest anteriorly and adjacent to the right atrium. * There is no echocardiographic evidence of tamponade. IVC * Normal IVC dimensions and inspiratory collapse. Pulmonary Artery * Normal visualized portions of the main pulmonary artery. Brain MRI 01/16/18 10:00 IMPRESSION: Moderate chronic small vessel ischemic changes. There are no areas of restricted diffusion to suggest an acute ischemic event. No abnormal areas of enhancement in the brain parenchyma. D/ / 01/16/2018 19:13:34 Norma Leonardo MD / [email or web address] Interpreting Provider: Norma Leonardo MD - ABG Interpretation ABG results: PT/INR, D-dimer PT 10.9 Seconds (9.4-12.1) 01/17/18 09:07 Consult Discharge Plan - Plan Referrals: Clinton Willams MD [Primary Care Provider] - - Attending Attestation I examined this patient and my medical decision-making was reviewed with the Advanced Practice Nurse. I agree with the documented findings, disposition and treatment plan as described except to the extent set forth below. 1. small cell lung cancer confirmed by biopsy 01/17/2018 CT scan showed bulky mediastinal adenopathy causing SVC syndrome. To complete staging she needs a PET scan or CT abdomen and pelvis MRI brain negative for metastasis A well-appearing all 300 mg by mouth at bedtime to prevent tumor lysis syndrome. Start chemotherapy as soon as possible On 01/18/2018 CBC and metabolic panel unremarkable 2. Mild swelling and pain in the right upper extremity proceed with venous Doppler right upper extremity. Given her small cell cancer she is at high risk for DVT. Also SVC syndrome causes sluggish blood flow and promotes DVT. <Kim Neely L - Last Filed: 01/18/18 18:41> Date of Encounter: 01/18/18 Time of Encounter: 10:30 (1) Lymphadenopathy Current Visit: Yes Status: Acute Assessment and plan: CTA chest revealed bulky mediastinal and right hilar lymphadenopathy, Lymphadenopathy contributes to extrinsic mass effect upon the SVC, right upper lobar pulmonary artery and to a lesser degree the right upper lobar bronchus, Spiculated nodule also noted in the right upper lobe of concern for malignancy and Partial visualization of right supraclavicular lymph nodes which are also enlarged. Allopurinol started as tumor lysis syndrome preventative measure. MRI brain wo/w- negative for metastatic disease Will plan for PET/CT as outpatient. Update 1300- Notified by Dr. Dahl that pathology consistent with small cell lung cancer. Initiating inpatient chemotherapy with Cisplatin and Etoposide Cycle 1, Day 1 today, she will receive day 2 Etoposide tomorrow. PRN antiemetic orders placed. General information regarding Cisplatin/Etoposide were discussed which included verbal and written information on side effects along with symptoms to report. Common side effects associated with Cisplatin/Etoposide include cytopenias, hair loss, mucositis, nausea, vomiting, diarrhea, poor appetite, taste changes/ metallic taste, electrolyte abnormalities, ototoxicity, peripheral neuropathy and nephrotoxicity. She will have close follow up with Dr. Dahl arranged following discharge. (2) SVC (superior vena cava obstruction) Current Visit: Yes Status: Acute Assessment and plan: Secondary to extrinsic compression. Periorbital edema, facial/neck edema, RUE edema. Patient is stable and without display of respiratory compromise, stridor, no dysphagia. Continue decadron. RUE venous doppler negative. Symptoms should improve with chemotherapy administration within the next days to weeks Oncology: Subj Interval history: Ms. Ramires is resting in bed. She reports mild back discomfort which she states is likely form the bed, she has taken tylenol recently for her pain. She denies pain otherwise. No changes in her respiratory status. She is ambulating in room. She states she felt SOB when taking her O2 off earlier to take a bath. She denies wheezing or stridor. Appetite is good, reports dysgeusia. - Constitutional Vitals: Vital Signs Temp Pulse Resp BP Pulse Ox 01/18/18 11:06 98.2 F 86 17 137/78 96 01/18/18 07:29 98.2 F 73 18 152/80 97 01/18/18 05:52 97.9 F 83 16 153/79 90 01/18/18 00:11 98.7 F 81 16 128/75 92 01/17/18 20:25 99 F 82 16 135/72 94 01/17/18 17:42 98.7 F 92 19 131/77 94 01/17/18 15:45 98.1 F 88 18 141/86 92 Intake and Output 01/17/18 01/18/18 01/18/18 23:59 07:59 15:59 Other: # Voids 1 Weight 52.844 kg 52.84 kg Patient Weight 01/18/18 23:59 Weight 52.84 kg General appearance: cooperative, no acute distress, no febrile - Head Additional comments: facial erythema, facial/neck swelling - Eye Eye exam: Present: periorbital swelling - ENT ENT exam: Present: mucous membranes moist - Respiratory Respiratory exam: Present: CTAB. Absent: respiratory distress, stridor, wheezes - Cardiovascular Cardiovascular exam: Present: RRR, +S1, +S2 - GI/Abdominal GI/Abdominal exam: Present: normal bowel sounds, soft. Absent: guarding, rebound, tenderness - Extremities Exam Extremities exam: Absent: calf tenderness Additional comments: RUE edema, non pitting - Neurological Exam Neurological exam: Present: alert, oriented X3, no focal deficits, strengths equal and symetr throughout - Psychiatric Psychiatric exam: Present: normal affect, normal mood - Skin Skin exam: Present: dry, erythema (noted to face), intact, warm Oncology: Obj Data - Labs CBC & Chem 7: 01/18/18 03:56 01/18/18 03:56 Labs: Laboratory Results - last 24 hr 01/18/1818 01/18/18 03:56 03:56 03:56 WBC 9.9 RBC 4.28 Hgb 12.9 Hct 38.8 MCV 90.7 MCH 30.1 MCHC 33.2 RDW 14.1 Plt Count 237 MPV 9.7 Immature Gran % 0.4 Seg Neutrophils % 86.0 Lymphocytes % 7.6 Monocytes % 5.9 Eosinophils % 0.0 Basophils % 0.1 Neutrophils # 8.5 Lymphocytes # 0.8 Monocytes # 0.6 Eosinophils # 0.0 Basophils # 0.0 Sodium 138 Potassium 3.9 Chloride 110 H Carbon Dioxide 21 L BUN 15 Creatinine 0.62 Est GFR ( Amer) > 60 Est GFR (Non-Af Amer) > 60 BUN/Creatinine Ratio 24 Glucose 112 H Est Mean Plasma Glucose 123 Hemoglobin A1c 5.9 H Calculated Osmolality 288 Calcium 9.2 - Impressions Impressions Echocardiogram 01/16/18 00:57 Impressions: LVEF 65-70%. Normal LV chamber size, wall thickness and function. Mild left ventricular diastolic dysfunction. Normal right ventricular structure and function. No significant valvular dysfunction. No evidence of pulmonary hypertension. There is a moderate to large circumferential pericardial effusion present, which was largest anteriorly and adjacent to the right atrium. There is no definite echocardiographic evidence of tamponade. Recommend a repeat study within 48 hours to re-evaluate effusion or sooner if clinically indicated. Clinical correlation suggested. Left Ventricular Wall Motion: Rest Echo Findings All wall segments showed normal motion. Findings: Study Quality * Technically adequate exam. ECG Findings * Normal sinus rhythm. Left Ventricle * LVEF 65-70%. * Normal LV chamber size, wall thickness and function. * Mild left ventricular diastolic dysfunction. Right Ventricle * Normal right ventricular structure and function. Left Atrium * Mildly dilated left atrium. Right Atrium * Normal right atrial size. Aortic Valve * Aortic valve not well visualized. * No aortic regurgitation. * No aortic stenosis. Mitral Valve * Normal mitral valve structure and function. * No mitral regurgitation. * No mitral stenosis. Tricuspid Valve * Normal tricuspid valve structure and function. * Trace tricuspid regurgitation. * No evidence of pulmonary hypertension. Pulmonic Valve * Pulmonic valve is not well visualized. * No pulmonic regurgitation. Aorta * Normally sized aortic root. Pericardium * There is a moderate to large circumferential pericardial effusion present, which was largest anteriorly and adjacent to the right atrium. * There is no echocardiographic evidence of tamponade. IVC * Normal IVC dimensions and inspiratory collapse. Pulmonary Artery * Normal visualized portions of the main pulmonary artery. Brain MRI 01/16/18 10:00 IMPRESSION: Moderate chronic small vessel ischemic changes. There are no areas of restricted diffusion to suggest an acute ischemic event. No abnormal areas of enhancement in the brain parenchyma. D/ / 01/16/2018 19:13:34 Norma Leonardo MD / [email or web address] Interpreting Provider: Norma Leonardo MD Chest X-Ray 01/17/18 10:32 IMPRESSION: Moderate-size right pleural effusion with associated right lower lobe atelectasis which has progressed New small left pleural effusion D/ / 01/17/2018 11:01:54 Colin Chowdhury MD / marlo Interpreting Provider: Colin Chowdhury MD - ABG Interpretation ABG results: PT/INR, D-dimer PT 10.9 Seconds (9.4-12.1) 01/17/18 09:07
[2018-01-18] MEDS: 0.9 % Sodium Chloride 500 ML IVC SCH (16:14)
[2018-01-18] MEDS ORDERED: ETOPOSIDE IV SCH ×3 (17:00)
[2018-01-18] MEDS ORDERED: SODIUM CHLORIDE 0.9% IV SCH ×4 (17:00)
[2018-01-18] MEDS ORDERED: CARBOplatin 410 MG in 0.9 % Sodium Chloride 250 ML IV SCH (18:00)
[2018-01-18] MEDS ORDERED: Ondansetron 4 MG/2 ML VIAL IVP PRN (18:45)
[2018-01-19] MEDS: Dexamethasone 4 MG/ML VIAL IVP SCH ×2 (05:59→07:36)
[2018-01-19] MEDS: *HR* Heparin 5,000 UNIT/ML VIAL SQ SCH (06:05)
[2018-01-19 06:20] LABS: Hematocrit 42.2 % (35.3-44.9); Hemoglobin 13.8 g/dL (11.5-15.4); Mean Corpuscular HGB Conc 32.7 g/dL (31.6-35.5); Mean Corpuscular Hemoglobin 29.7 pg (28.0-33.3); Mean Corpuscular Volume 90.9 fL (83.0-100.0); Mean Platelet Volume 9.6 fL (9.4-12.4); Platelet Count 251 K/mcL (140-400); Red Blood Count 4.64 M/mcL (3.82-4.97); Red Cell Distribution Width 14.2 % (11.5-14.5); Segmented Neutrophils % 83.4 %
[2018-01-19 06:21] LABS: Immature Granulocytes % 0.5 % (0-4); Lymphocytes # 0.7 K/mcL (0.6-4.6); Lymphocytes % 9.4 %; Monocytes # 0.5 K/mcL (0.0-1.3); Monocytes % 6.7 %; Neutrophils # 6.1 K/mcL (1.6-8.9)
[2018-01-19 06:45] LABS: BUN/Creatinine Ratio 25 (6-26); Blood Urea Nitrogen 17 mg/dL (8-23); Calcium 9.1 mg/dL (8.6-10.3); Carbon Dioxide 21 mEq/L (23-29); Chloride 110 mEq/L (98-107); Glucose 109 mg/dL (70-105); Osmolality,Calculated 286 (280-300); Potassium 4.2 mEq/L (3.5-5.1); Sodium 137 mEq/L (136-145); eGFR For African Americans > 60 (> 60); eGFR For Non-African Americans > 60 (> 60)
--- NOTE | 2018-01-19 10:31 | Oncology Inp Progress Note ---
Date of Encounter: 01/19/18 Time of Encounter: 11:00 (1) SVC syndrome Current Visit: Yes Status: Acute Assessment and plan: Secondary to small cell lung cancer. She has been placed on carboplatin and etoposide. This should start to resolve over the next few days. Scheduled Decadron has been discontinued. (2) Small cell lung cancer Current Visit: Yes Status: Acute Assessment and plan: She is to receive cycle 1 day 2 of etoposide today. No therapy is planned for Sunday secondary to pharmacy logistical issues. If she feels well tomorrow, she may be discharged from our perspective. We will have close follow-up with her next week. (3) Hypoxia Current Visit: Yes Status: Acute Assessment and plan: She has emphysema by CT scan and likely has a component of COPD given her tobacco abuse. In addition, her cancer is contributing. She inquired about home oxygen supplementation. I will defer this to the primary hospitalist team. Continue nebulizer treatments and optimize her pulmonary regimen. Oncology: Subj Interval history: Tolerated her first dose of chemotherapy well. Day 2 single agent etoposide today. Facial swelling is stable but she states bags under her eyes have improved. Has had some dried crusted blood from her left bryson. No other bleeding symptom. No nausea, vomiting, diarrhea. No current headache. She is short of breath and states that the oxygen helps with this. She wonders if she will be going home with oxygen. - Constitutional Vitals: Vital Signs Temp Pulse Resp BP Pulse Ox 01/19/18 06:37 98.4 F 70 18 132/83 96 01/19/18 04:53 98.1 F 70 18 142/80 99 01/18/18 22:59 97.9 F 69 16 148/88 98 01/18/18 19:09 97.6 F 71 16 156/90 98 01/18/18 14:07 97.8 F 79 19 125/78 98 01/18/18 11:06 98.2 F 86 17 137/78 96 Intake and Output 01/19/18 01/19/18 01/19/18 00:59 08:59 16:59 Intake Total 798.5 / 798.5 360 / 360 Balance 798.5 / 798.5 360 / 360 Intake: IV Fluids 798.5 / 798.5 CARBOplatin 410 MG In 0.9 % 291 / 291 Sodium Chloride 250 ML @ 582 mls/hr IV ONCE [facility] Rx#: [id number] Etoposide 150 mg In 0.9 % 507.5 / 507.5 Sodium Chloride 500 ML @ 507.5 mls/hr IV ONCE [facility] Rx#: [id number] Oral 360 / 360 Other: Meal Breakfast Percent of Meal Consumed 75% Weight 55 kg General appearance: cooperative, no acute distress - Head Head exam: Present: atraumatic, normal inspection Additional comments: facial plethora stable - Eye Eye exam: Present: normal appearance, conjuntiva pink, sclera anicteric - ENT ENT exam: Present: mucous membranes moist, normal oropharynx - Neck Neck exam: Present: full ROM, lymphadenopathy - Respiratory Respiratory exam: Present: CTAB - Cardiovascular Cardiovascular exam: Present: RRR - GI/Abdominal GI/Abdominal exam: Present: normal bowel sounds, soft - Extremities Exam Extremities exam: Present: normal inspection Additional comments: right arm swelling Oncology: Obj Data - Labs CBC & Chem 7: 01/19/18 05:41 01/19/18 05:41 Labs: Laboratory Results - last 24 hr 01/19/18 01/19/18 05:41 05:41 WBC 7.3 RBC 4.64 Hgb 13.8 Hct 42.2 MCV 90.9 MCH 29.7 MCHC 32.7 RDW 14.2 Plt Count 251 MPV 9.6 Immature Gran % 0.5 Seg Neutrophils % 83.4 Lymphocytes % 9.4 Monocytes % 6.7 Eosinophils % 0.0 Basophils % 0.0 Neutrophils # 6.1 Lymphocytes # 0.7 Monocytes # 0.5 Eosinophils # 0.0 Basophils # 0.0 Sodium 137 Potassium 4.2 Chloride 110 H Carbon Dioxide 21 L BUN 17 Creatinine 0.68 Est GFR ( Amer) > 60 Est GFR (Non-Af Amer) > 60 BUN/Creatinine Ratio 25 Glucose 109 H Calculated Osmolality 286 Calcium 9.1 - ABG Interpretation ABG results: PT/INR, D-dimer PT 10.9 Seconds (9.4-12.1) 01/17/18 09:07 Consult Discharge Plan - Plan Referrals: Clinton Willams MD [Primary Care Provider] -
--- NOTE | 2018-01-19 12:56 | Internal Med Progress Note ---
Date of Encounter: 01/19/18 Time of Encounter: 13:00 - Assessment and plan (1) Small cell lung cancer Current Visit: Yes Status: Acute Assessment and plan: Clinical picture likely consistent with small cell lung cancer. Biopsy results confirmed small cell lung cancer. Started on chemotherapy. F/U onc recs (2) Mediastinal mass Current Visit: Yes Status: Acute Assessment and plan: Patient has large mediastinal and hilar masses/lymphadenopathy with peripheral lymphadenopathy including cervical and supraclavicular. 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 Patient underwent bronchoscopy and attempt to obtain tissue diagnosis however this procedure was complicated by significant bleeding. Sample was obtained but is unclear if this is getting to be adequate for pathology review. Discussed with oncology and interventional radiology, they feel that there is an easily accessible superior lateral anterior mediastinal lymph node that can be obtained via CT-guided biopsy which will be attempted today. Once diagnosis is made patient will likely begin therapy as an inpatient given her complicating factors including SVC syndrome. Oncology is following and will make recommendations regarding treatment once tissue diagnosis was obtained. Further metastatic workup to this point has been negative including brain MRI which shows no evidence of brain metastasis. Patient will need CT/PET as an outpatient to complete metastatic workup. Continue Decadron 4 mg IV every 6 01/19. biopsy results showed small cell lung cancer. started on chemotherapy (3) SVC syndrome Current Visit: Yes Status: Acute Assessment and plan: Secondary to mediastinal mass as discussed above. Patient has facial swelling but no evidence of airway compromise. On chemotherapy which should shrink the mass and improve her symptoms (4) Proteinuria Current Visit: Yes Status: Acute Assessment and plan: Unclear etiology. Creatinine function normal. Protein creatinine ratio is 0.4. Currently on an TORI inhibitor, we will continue this. We will check hemoglobin A1c to screen for diabetes as the patient has had elevated blood sugars during this hospitalization although this could be secondary to steroid use. Qualifiers: Proteinuria type: unspecified Qualified Code(s): R80.9 - Proteinuria, unspecified (5) HTN (hypertension) Current Visit: Yes Status: Acute Assessment and plan: Mildly elevated this morning. We will restart home lisinopril, continue to monitor. Qualifiers: Hypertension type: essential hypertension Qualified Code(s): I10 - Essential (primary) hypertension (6) HLD (hyperlipidemia) Current Visit: Yes Status: Acute Assessment and plan: Stable. Lipid panel shows lipids under good control. Hold lovastatin positive patient will restart at discharge Qualifiers: Hyperlipidemia type: pure hypercholesterolemia Qualified Code(s): E78.00 - Pure hypercholesterolemia, unspecified; E78.0 - Pure hypercholesterolemia (7) Depression Current Visit: Yes Status: Acute Assessment and plan: Stable. Continue Paxil. Qualifiers: Depression Type: major depressive disorder Major depression recurrence: unspecified whether recurrent Active/Remission status: in full remission Qualified Code(s): F32.5 - Major depressive disorder, single episode, in full remission - Time Spent With Patient Total time spent is greater than 50% in coordination of care (as documented) at patient's floor/unit and/or counseling patient: - Subjective Interval history: No acute events overnight - Constitutional Vitals: Temp Pulse Resp BP Pulse Ox 98.0 F 95 17 151/82 93 01/19/18 11:23 01/19/18 11:23 01/19/18 11:23 01/19/18 11:23 01/19/18 11:23 General appearance: Present: A&O X 3, pleasant, no acute distress - Head Head exam: Present: atraumatic, normocephalic - Eye Eye exam: Present: PERRL, conjuntiva pink, sclera anicteric Pupils: Present: PERRL - Neck Neck exam general surgery: Present: supple, trachea midline. Absent: lymphadenopathy - Respiratory Respiratory exam: Present: CTAB. Absent: accessory muscle use, rales, rhonchi, wheezes - Cardiovascular Cardiovascular exam: Present: RRR, +S1, +S2. Absent: diastolic murmur, gallop, rubs, systolic murmur - GI/Abdominal GI/Abdominal exam: Present: normal bowel sounds, soft, no peritoneal signs. Absent: distended, tenderness - Extremities Exam Extremities exam: Present: warm, radial pulses palpable and symmetrical. Absent : calf tenderness, cyanotic, pedal edema - Neurological Exam Neurological exam: Present: CN II-XII intact, oriented X3, no focal deficits. Absent: pronater drift, facial droop, speech deficit - Skin Skin exam: Present: dry, intact Internal Medicine: Result - Labs CBC & Chem 7: 01/19/18 05:41 01/19/18 05:41 Labs: Short CBC 01/19/18 Range/Units 05:41 WBC 7.3 (4.3-11.1) K/mcL Hgb 13.8 (11.5-15.4) g/dL Hct 42.2 (35.3-44.9) % Plt Count 251 (140-400) K/mcL Neutrophils # 6.1 (1.6-8.9) K/mcL BMP 01/19/18 05:41 Sodium 137 Potassium 4.2 Chloride 110 H Carbon Dioxide 21 L BUN 17 Creatinine 0.68 Glucose 109 H Calcium 9.1 - ABG Interpretation ABG results: PT/INR, D-dimer PT 10.9 Seconds (9.4-12.1) 01/17/18 09:07 Consult Discharge Plan - Plan Referrals: Clinton Willams MD [Primary Care Provider] -
[2018-01-19] MEDS ORDERED: ETOPOSIDE IV SCH (17:00)
[2018-01-19] MEDS ORDERED: SODIUM CHLORIDE EXCEL BG 0.9% IV SCH (17:00)
[2018-01-19] MEDS: 0.9 % Sodium Chloride 500 ML IVC SCH (17:43)
[2018-01-20] MEDS: *HR* Heparin 5,000 UNIT/ML VIAL SQ SCH ×2 (05:23→05:28)
[2018-01-20] MEDS ORDERED: ALPRAZolam 0.5 MG TABLET PO ONE (05:37)
[2018-01-20 07:37] LABS: Basophils % 0.3 %; Eosinophils % 0.3 %; Hematocrit 40.7 % (35.3-44.9); Hemoglobin 13.6 g/dL (11.5-15.4); Immature Granulocytes % 0.3 % (0-4); Lymphocytes # 1.7 K/mcL (0.6-4.6); Lymphocytes % 27.7 %; Mean Corpuscular HGB Conc 33.4 g/dL (31.6-35.5); Mean Corpuscular Hemoglobin 30.4 pg (28.0-33.3); Mean Corpuscular Volume 90.8 fL (83.0-100.0); Mean Platelet Volume 9.1 fL (9.4-12.4); Monocytes # 0.3 K/mcL (0.0-1.3); Neutrophils # 4.1 K/mcL (1.6-8.9); Platelet Count 213 K/mcL (140-400); Red Blood Count 4.48 M/mcL (3.82-4.97); Red Cell Distribution Width 14.2 % (11.5-14.5); Segmented Neutrophils % 66.4 %
[2018-01-20 07:54] LABS: BUN/Creatinine Ratio 29 (6-26); Blood Urea Nitrogen 20 mg/dL (8-23); Carbon Dioxide 23 mEq/L (23-29); Chloride 111 mEq/L (98-107); Glucose 81 mg/dL (70-105); Osmolality,Calculated 288 (280-300); Potassium 3.7 mEq/L (3.5-5.1); Sodium 138 mEq/L (136-145); eGFR For African Americans > 60 (> 60); eGFR For Non-African Americans > 60 (> 60)
[2018-01-20 11:59] VITALS: BP 121/72
--- NOTE | 2018-01-20 12:57 | Discharge Summary ---
Date of Encounter: 01/20/18 Time of Encounter: 12:55 - Discharge Diagnosis (1) Small cell lung cancer Priority: Primary Status: Acute Assessment and Plan: 67 year old female with a pmh of HTN, HLP, depression, and a smoker who presented to the ED with bilateral facial swelling and shortness of breath. Three weeks ago she began having sinus congestion and facial swelling that she had 2 rounds of antibiotics which did not resolve. CT of sinuses showed minimal sinus thickening. She continued to have facial swelling that worsened and extended into her right arm and an itchy red macular rash on the left side of her face that appeared [address] scan showed specific nodule in the right upper lung and lymphadenopathy causing a mass effect on the superior vena cava. She was assessed with SVC syndrome and oncology and pulmonary were consulted. She underwent a bronchoscopy but had procedure complicated by significant bleeding. She subsequently had a CT guided core needle biopsy which came back positive for small cell lung cancer. She was started on carboplatin and etoposide chemotherapy to shrink the tumor. She will follow up outpatient with oncology to complete her course of chemtoherapy. She was also started on allopurinol to prevent tumor lysis. She has a hx of COPD and was noted to be hypoxic with lung CT showing bullous changes. She qualified for and was discharged on home oxygen (2) Mediastinal mass Priority: Secondary Status: Acute (3) SVC syndrome Priority: Secondary Status: Acute (4) Proteinuria Priority: Secondary Status: Acute Qualifiers: Proteinuria type: unspecified Qualified Code(s): R80.9 - Proteinuria, unspecified (5) HTN (hypertension) Priority: Secondary Status: Acute Qualifiers: Hypertension type: essential hypertension Qualified Code(s): I10 - Essential (primary) hypertension (6) HLD (hyperlipidemia) Priority: Secondary Status: Acute Qualifiers: Hyperlipidemia type: pure hypercholesterolemia Qualified Code(s): E78.00 - Pure hypercholesterolemia, unspecified; E78.0 - Pure hypercholesterolemia (7) Depression Priority: Secondary Status: Acute Qualifiers: Depression Type: major depressive disorder Major depression recurrence: unspecified whether recurrent Active/Remission status: in full remission Qualified Code(s): F32.5 - Major depressive disorder, single episode, in full remission Hospital course: Ms. Ramires is a 68 year old female - Time Spent with Patient Total time spent providing and/or coordinating discharge services: - Discharge Medications Prescriptions: Allopurinol [Zyloprim 300 MG] 300 mg PO DAILY #60 tablet Home Medications: Calcium Carbonate/Vitamin D3 [Calcium 600 + Vit D Tablet] 1 tab PO DAILY [History] Chlorhexidine Gluconate [Peridex] 15 ml MM BID 09/08/16 [History] Cyanocobalamin (Vitamin B-12) [Vitamin B12] 10,000 mcg PO DAILY 09/08/16 [ History] Lisinopril [Zestril] 10 mg PO DAILY 09/08/16 [History] Lovastatin [Mevacor] 20 mg PO HS 09/08/16 [History] Multivitamin [One Daily Essential] 1 tab PO DAILY 09/08/16 [History] Naproxen Sodium/P-Ephed HCl [Aleve Cold and Sinus Caplet] 1 tab PO BID PRN 09/08 [History] Paroxetine HCl [Paxil] 20 mg PO DAILY 09/08/16 [History] Turmeric Root Extract [Turmeric] 1,000 mg PO DAILY 09/08/16 [History] Fish Oil/Dha/Epa [Fish Oil 1,200 mg Fish Oil] 1 cap PO DAILY 01/16/18 [History] Loratadine [Allergy Relief] 10 mg PO DAILY 01/16/18 [History] Allopurinol [Zyloprim 300 MG] 300 mg PO DAILY #60 tablet 01/20/18 [Rx] Allergies/Adverse Reactions: 3 Allergy/AdvReac Type Severity Reaction Status Date / Time No Known Allergies Allergy Verified 01/15/18 21:09 Date of admission: 01/19/18 14:26 Primary care physician: Clinton Willams MD - Constitutional Vitals: Temp Pulse Resp BP Pulse Ox 98.0 F 78 16 121/72 92 01/20/18 11:57 01/20/18 11:57 01/20/18 11:57 01/20/18 11:57 01/20/18 11:57 General appearance: Present: A&O X 3, pleasant, no acute distress - Head Head exam: Present: atraumatic, normocephalic - Eye Eye exam: Present: PERRL, conjuntiva pink, sclera anicteric Pupils: Present: PERRL - Neck Neck exam general surgery: Present: supple, trachea midline. Absent: lymphadenopathy - Respiratory Respiratory exam: Present: CTAB. Absent: accessory muscle use, rales, rhonchi, wheezes - Cardiovascular Cardiovascular exam: Present: RRR, +S1, +S2. Absent: diastolic murmur, gallop, rubs, systolic murmur - GI/Abdominal GI/Abdominal exam: Present: normal bowel sounds, soft, no peritoneal signs. Absent: distended, tenderness - Extremities Exam Extremities exam: Present: warm, radial pulses palpable and symmetrical. Absent : calf tenderness, cyanotic, pedal edema - Neurological Exam Neurological exam: Present: CN II-XII intact, oriented X3, no focal deficits. Absent: pronater drift, facial droop, speech deficit - Skin Skin exam: Present: dry, intact - Patient Status Disposition: Home, Self-Care Condition: Good - Discharge Instructions Follow Up With: Clinton Willams MD [Primary Care Provider] -
[2018-01-21] MEDS ORDERED: Famotidine 20 MG/2 ML VIAL IV PRN
[2018-01-21] MEDS ORDERED: Prochlorperazine 10 MG/2 ML VIAL IV PRN
[2018-01-21] MEDS ORDERED: ETOPOSIDE IV SCH
[2018-01-21] MEDS ORDERED: *HR* LORazepam 2 MG/ML VIAL IV PRN
[2018-01-21] MEDS ORDERED: SODIUM CHLORIDE 0.9% IV SCH
[2018-01-21] MEDS ORDERED: 0.9 % Sodium Chloride 500 ML IVC SCH
[2018-01-21] MEDS ORDERED: Dexamethasone 10 MG/ML VIAL IV PRN
[2018-01-21] MEDS ORDERED: Dexamethasone 10 MG/ML VIAL IV ONE
== END 2018-01-20 16:15 | disposition home or self-care (01) | DRG 181 ==
LOC: 2SOUTHHOLD 20:59 → EMEROO 20:59 → SUATTDRO 23:43 → 2SOUTHHOLD 23:59 → 2ANU 01-17 17:22 → 3ANU 01-18 12:34
PROVIDERS: ADMIT Student in an Organized Health Care Education/Training Program; ATTEND Hospitalist

== ENCOUNTER 2022-03-13 23:20 | Inpatient (IN) ==
[2022-03-13] MEDS ORDERED: Aspirin 81 MG TAB.CHEW PO ONE (23:37)
[2022-03-13] MEDS ORDERED: *HR* Ticagrelor 90 MG TABLET PO ONE (23:38)
[2022-03-13] MEDS ORDERED: *HR* Heparin 5,000 UNIT/ML VIAL IVP ONE (23:38)
[2022-03-13] MEDS ORDERED: 0.9 % Sodium Chloride 1,000 ML ONE ×2 (23:45→23:53)
[2022-03-13] MEDS ORDERED: *HR* FentaNYL (PF) 100 MCG/2 ML VIAL ONE (23:52)
[2022-03-13] MEDS ORDERED: *HR* FentaNYL (PF) 100 MCG/2 ML VIAL IVP ONE (23:52)
[2022-03-13] MEDS ORDERED: *HR* Midazolam HCl 2 MG/2 ML VIAL ONE (23:52)
[2022-03-13] MEDS ORDERED: Iopamidol - 370 200 ML INFUS..BTL ONE (23:53)
[2022-03-13] MEDS ORDERED: Heparin 1,000 UNITS/500 mL 500 ML ONE (23:53)
[2022-03-13] MEDS ORDERED: Nitroglycerin 1,000 MCG/5 ML VIAL IV ONE (23:53)
[2022-03-13] MEDS ORDERED: *HR* Heparin 10,000 UNIT/10 ML VIAL ONE ×2 (23:53→23:54)
[2022-03-13 23:57] LABS: Basophils % 0.7 %; Eosinophils # 0.1 K/mcL (0.0-0.6); Eosinophils % 1.2 %; Hematocrit 37.2 % (35.3-44.9); Hemoglobin 11.7 g/dL (11.5-15.4); Immature Granulocytes % 0.2 % (0-4); Lymphocytes # 1.5 K/mcL (0.6-4.6); Lymphocytes % 35.5 %; Mean Corpuscular HGB Conc 31.5 g/dL (31.6-35.5); Mean Corpuscular Hemoglobin 29.2 pg (28.0-33.3); Mean Corpuscular Volume 92.8 fL (83.0-100.0); Mean Platelet Volume 8.8 fL (9.4-12.4); Monocytes # 0.5 K/mcL (0.0-1.3); Monocytes % 11.1 %; Neutrophils # 2.2 K/mcL (1.6-8.9); Platelet Count 220 K/mcL (140-400); Red Blood Count 4.01 M/mcL (3.82-4.97); Red Cell Distribution Width 14.1 % (11.5-14.5); Segmented Neutrophils % 51.3 %; White Blood Count 4.2 K/mcL (4.3-11.1)
[2022-03-14 00:06] LABS: INR 0.9; Prothrombin Time 10.3 Seconds (9.4-12.1)
[2022-03-14 00:09] LABS: Activated Partial Thrombo Time 29.5 Seconds (26.0-36.0)
[2022-03-14 00:20] LABS: BUN/Creatinine Ratio 15 (6-26); Blood Urea Nitrogen 15 mg/dL (8-23); Calcium 10.1 mg/dL (8.6-10.3); Carbon Dioxide 25 mEq/L (23-29); Chloride 104 mEq/L (98-107); Glucose 119 mg/dL (70-105); Osmolality,Calculated 288 (280-300); Potassium 3.7 mEq/L (3.5-5.1); Sodium 138 mEq/L (136-145); eGFR For African Americans > 60 (> 60); eGFR For Non-African Americans 56 (> 60)
[2022-03-14 00:21] LABS: Troponin I < 0.03 ng/mL (< 0.04)
[2022-03-14] MEDS ORDERED: Tirofiban 5 MG/100 mL 5 MG/100 ML VIAL IV ONE (00:35)
[2022-03-14] MEDS ORDERED: *HR* Atropine Sulfate 1 MG/10 ML SYRINGE ONE (00:36)
[2022-03-14] MEDS ORDERED: Iopamidol - 370 200 ML INFUS..BTL ONE (00:56)
[2022-03-14] MEDS: 0.9 % Sodium Chloride 500 ML IVC SCH ×2 (01:30→10:45)
[2022-03-14] MEDS: *HR* Ticagrelor 90 MG TABLET PO SCH ×2 (08:17→19:33)
[2022-03-14] MEDS: Aspirin 81 MG TAB.CHEW PO SCH (08:18)
[2022-03-14] MEDS ORDERED: Nitroglycerin 0.4 MG TAB.SUBL SL PRN (08:20)
[2022-03-14] MEDS ORDERED: Acetaminophen 325 MG TABLET PO PRN (08:36)
[2022-03-14] MEDS ORDERED: Metoprolol XL (24 HR) Succ 25 MG TAB.ER.24H PO SCH (09:00)
[2022-03-14 09:03] LABS: Basophils % 0.5 %; Hemoglobin 12.1 g/dL (11.5-15.4); Immature Granulocytes % 0.3 % (0-4); Lymphocytes # 0.5 K/mcL (0.6-4.6); Lymphocytes % 8.2 %; Mean Corpuscular HGB Conc 31.8 g/dL (31.6-35.5); Mean Corpuscular Hemoglobin 29.1 pg (28.0-33.3); Mean Corpuscular Volume 91.3 fL (83.0-100.0); Mean Platelet Volume 9.1 fL (9.4-12.4); Monocytes # 0.6 K/mcL (0.0-1.3); Monocytes % 9.2 %; Neutrophils # 5.1 K/mcL (1.6-8.9); Platelet Count 209 K/mcL (140-400); Red Blood Count 4.16 M/mcL (3.82-4.97); Red Cell Distribution Width 14.2 % (11.5-14.5); Segmented Neutrophils % 81.8 %; White Blood Count 6.2 K/mcL (4.3-11.1)
[2022-03-14 09:30] LABS: BUN/Creatinine Ratio 14 (6-26); Blood Urea Nitrogen 13 mg/dL (8-23); Calcium 9.5 mg/dL (8.6-10.3); Carbon Dioxide 24 mEq/L (23-29); Chloride 104 mEq/L (98-107); Glucose 113 mg/dL (70-105); Osmolality,Calculated 285 (280-300); Potassium 3.9 mEq/L (3.5-5.1); Sodium 137 mEq/L (136-145); Troponin I > 73.00 ng/mL (< 0.04); eGFR For African Americans > 60 (> 60); eGFR For Non-African Americans 57 (> 60)
[2022-03-14] MEDS ORDERED: Metoprolol XL (24 HR) Succ 25 MG TAB.ER.24H PO ONE (14:00)
[2022-03-14] MEDS ORDERED: Ondansetron Oral Soln 2 MG/2.5 ML ORAL.SYG PO PRN (18:15)
[2022-03-15] MEDS: *HR* Ticagrelor 90 MG TABLET PO SCH ×2 (08:02→20:01)
[2022-03-15] MEDS: Aspirin 81 MG TAB.CHEW PO SCH (08:02)
[2022-03-15] MEDS ORDERED: Metoprolol XL (24 HR) Succ 25 MG TAB.ER.24H PO SCH (09:00)
[2022-03-15] MEDS ORDERED: PARoxetine 20 MG TABLET PO SCH (12:00)
[2022-03-15] MEDS ORDERED: Acetaminophen 325 MG TABLET PO PRN (12:37)
[2022-03-15] MEDS ORDERED: Nitroglycerin 0.4 MG TAB.SUBL SL PRN (12:37)
[2022-03-15] MEDS ORDERED: Ondansetron Oral Soln 2 MG/2.5 ML ORAL.SYG PO PRN (12:37)
[2022-03-15] MEDS ORDERED: PARoxetine 20 MG TABLET PO ONE (13:30)
[2022-03-16 07:29] VITALS: TEMP 98.1
[2022-03-16] MEDS: *HR* Ticagrelor 90 MG TABLET PO SCH (08:10)
[2022-03-16] MEDS ORDERED: Multivit/Ca/Min/Fe/FA 1 TAB TABLET PO SCH ×2 (09:00)
[2022-03-16] MEDS ORDERED: PARoxetine 20 MG TABLET PO SCH (09:00)
[2022-03-16] MEDS ORDERED: Aspirin 81 MG TAB.CHEW PO SCH (09:00)
[2022-03-16] MEDS ORDERED: Metoprolol XL (24 HR) Succ 25 MG TAB.ER.24H PO SCH (09:00)
[2022-03-16] MEDS ORDERED: Cyanocobalamin (B-12) 1,000 MCG TABLET PO SCH ×2 (09:00)
[2022-03-16 09:25] LABS: Basophils % 0.4 %; Eosinophils % 0.6 %; Hematocrit 34.5 % (35.3-44.9); Hemoglobin 10.6 g/dL (11.5-15.4); Immature Granulocytes % 0.2 % (0-4); Lymphocytes # 0.7 K/mcL (0.6-4.6); Lymphocytes % 12.8 %; Mean Corpuscular HGB Conc 30.7 g/dL (31.6-35.5); Mean Corpuscular Hemoglobin 28.8 pg (28.0-33.3); Mean Corpuscular Volume 93.8 fL (83.0-100.0); Mean Platelet Volume 9.4 fL (9.4-12.4); Monocytes # 0.4 K/mcL (0.0-1.3); Monocytes % 7.4 %; Neutrophils # 4.1 K/mcL (1.6-8.9); Platelet Count 196 K/mcL (140-400); Red Blood Count 3.68 M/mcL (3.82-4.97); Red Cell Distribution Width 14.6 % (11.5-14.5); Segmented Neutrophils % 78.6 %; White Blood Count 5.2 K/mcL (4.3-11.1)
[2022-03-16 09:35] LABS: BUN/Creatinine Ratio 12 (6-26); Blood Urea Nitrogen 11 mg/dL (8-23); Calcium 8.9 mg/dL (8.6-10.3); Carbon Dioxide 20 mEq/L (23-29); Chloride 109 mEq/L (98-107); Glucose 149 mg/dL (70-105); Osmolality,Calculated 288 (280-300); Potassium 3.3 mEq/L (3.5-5.1); Sodium 138 mEq/L (136-145); eGFR For African Americans > 60 (> 60); eGFR For Non-African Americans > 60 (> 60)
[2022-03-16] MEDS ORDERED: lisinopriL 5 MG TABLET PO SCH (10:15)
[2022-03-16 12:02] VITALS: BP 157/76; PULSE 77; O2SAT 97
== END 2022-03-16 15:21 | disposition home health service (06) | DRG 246 ==
LOC: EMEROOARM 23:20 → ICNU 23:20 → 2NNU 03-15 22:34
PROVIDERS: ADMIT Internal Medicine Cardiovascular Disease; ATTEND Internal Medicine Cardiovascular Disease